=== PATIENT | male | born 1955 | race African-American/Black ===

== ENCOUNTER 2016-03-13 13:52 | Inpatient (IN) | payer OTHER ==
[~2016-03-13] VITALS: Ht 167.6 cm; Wt 68.3 kg
[2016-03-13 21:00] VITALS: BP 122/72; PULSE 66; RESP 17; TEMP 96; O2SAT 92
[2016-03-13] MEDS ORDERED: ACETAMINOPHEN 325 MG TAB PO PRN ×2 (21:30→21:45)
[2016-03-13] MEDS ORDERED: ONDANSETRON HCL 4 MG/2 ML VIAL IVP PRN ×2 (21:30→21:45)
[2016-03-13] MEDS ORDERED: MAGNESIUM HYDROXIDE SUSP 30 ML CUP PO PRN (21:30)
[2016-03-13] MEDS ORDERED: SODIUM CHLORIDE 0.9% FLUSH 5 ML FLUSH FLUSH PRN ×2 (21:30→21:45)
[2016-03-13] MEDS ORDERED: NALOXONE HCL 0.4 MG/ML AMP IV PRN ×2 (21:30→21:45)
[2016-03-13] MEDS ORDERED: BISACODYL 10 MG SUPP PR PRN (21:45)
[2016-03-13] MEDS ORDERED: ENALAPRILAT 1.25 MG/ML VIAL IV PRN (21:45)
[2016-03-13] MEDS ORDERED: cloNIDine HCL 0.2 MG TAB PO PRN (21:45)
[2016-03-13] MEDS ORDERED: DEXTROSE 50% IN WATER 50 ML VIAL(D50) IV PUSH PRN (22:00)
[2016-03-13] MEDS ORDERED: GLUCAGON 1 MG/ML VIAL OTHER PRN (22:00)
[2016-03-13] MEDS ORDERED: PRAZ1CAP PO (22:19)
[2016-03-13] MEDS ORDERED: PRAV20TA2 PO (22:19)
[2016-03-13] MEDS ORDERED: HEPAR10KP SQ (22:19)
[2016-03-13] MEDS ORDERED: NUTR-215 J-TUBE (22:19)
[2016-03-13] MEDS ORDERED: GLUCLIQ15 PO (22:19)
[2016-03-13] MEDS ORDERED: OXYC1TAB13 PO (22:19)
[2016-03-13] MEDS ORDERED: NOVORP2 SQ (22:19)
[2016-03-13] MEDS ORDERED: PROTPAK PO (22:19)
[2016-03-13] MEDS ORDERED: LOMO5S PO (22:19)
[2016-03-13] MEDS ORDERED: NYSTPOW TOPICAL (22:19)
[2016-03-13] MEDS ORDERED: NYSTATIN 100,000 UNIT/GM CREAM 15 GM TOPICAL SCH (22:30)
--- NOTE | 2016-03-13 22:46 | RADRPT ---
EXAM DATE/TIME: 03/13/2016 22:02 [facility] COMPARISON: CHEST SINGLE AP, February 23, 2016, 4:06. INDICATIONS : Cough, chest congestion. MEDICAL HISTORY : Cardiovascular disease. SURGICAL HISTORY : CABG. Pacemaker. ENCOUNTER: Initial ACUITY: 1 day PAIN SCORE: 0/10 LOCATION: Bilateral chest FINDINGS: Again evidence of prior median sternotomy cardiac surgery CABG is appreciated with a bipolar pacemake r overlying the left hemithorax . There is hypoaeration with findings suggesting borderline left vent ricular cardiomegaly and the vascularity is indistinct with pulmonary vascular congestion and right p leural effusion. CONCLUSION: Pulmonary vascular congestion, CHF with right pleural effusion Burt Sears MD on March 13, 2016 at 22:44 Board Certified Radiologist. This report was verified electronically.
[2016-03-14] VITALS (14 sets, daily range): BP systolic 101–164; BP diastolic 60–93; PULSE 65–77; RESP 12–20; TEMP 96.3–98.4; O2SAT 91–95
[2016-03-14 02:34] LABS: BICARBONATE 27.7 MEQ/L (21.0-32.0); MAGNESIUM 2.3 MG/DL (1.5-2.5); POTASSIUM 5.5 MEQ/L (3.5-5.1)
[2016-03-14 02:41] LABS: AUTOMATED NEUTROPHIL # 10.7 TH/MM3 (1.8-7.7); BASOPHIL # 0.1 TH/MM3 (0-0.2); BASOPHIL % 0.6 % (0.0-2.0); EOSINOPHIL # 0.3 TH/MM3 (0-0.4); EOSINOPHIL % 2.6 % (0.0-4.0); LYMPH % 6.8 % (9.0-44.0); LYMPHOCYTE # 0.9 TH/MM3 (1.0-4.8); MEAN CELL VOLUME 85.2 FL (80.0-100.0); MEAN CORPUSCULAR HEMOGLOBIN 27.9 PG (27.0-34.0); MEAN CORPUSCULAR HGB CONC 32.7 % (32.0-36.0); MONO % 6.2 % (0.0-8.0); NEUT % 83.8 % (16.0-70.0); PLATELET COUNT 447 TH/MM3 (150-450); RED BLOOD COUNT 2.25 MIL/MM3 (4.50-5.90); RED CELL DISTRIBUTION WIDTH 17.2 % (11.6-17.2); WHITE BLOOD COUNT 12.8 TH/MM3 (4.0-11.0)
[2016-03-14 02:47] LABS: HEMO FLAGS AUTO DIFF
[2016-03-14 02:52] LABS: HEMATOCRIT 19.1 % (39.0-51.0)
[2016-03-14 03:26] LABS: KERATOCYTES OCC (NORMAL); SPHEROCYTES OCC (NORMAL)
[2016-03-14 03:27] LABS: PLATELET MORPHOLOGY NORMAL (NORMAL); SCAN/DIFF AUTO DIFF CONFIRMED
[2016-03-14 03:28] LABS: PLATELET ESTIMATE SMEAR NORMAL (NORMAL)
[2016-03-14] MEDS ORDERED: FUROSEMIDE 20 MG/2 ML VIAL IV PUSH SCH (04:15)
[2016-03-14] MEDS: INSULIN ASPART SUPPLEMENTAL SCALE SQ SCH ×4 (06:13→20:32)
[2016-03-14] MEDS: PRAZOSIN HCL 1 MG CAP PO SCH ×2 (08:27→20:31)
[2016-03-14] MEDS: PANTOPRAZOLE SOD 40 MG DELAYED RELEASE TAB PO SCH ×2 (08:32→20:31)
[2016-03-14] MEDS: SODIUM CHLORIDE 0.9% FLUSH 5 ML FLUSH FLUSH SCH ×2 (08:32→20:32)
[2016-03-14] MEDS: NUTRITIONAL SUPPLEMENTS PO SCH ×3 (08:33→15:46)
[2016-03-14] MEDS ORDERED: SODIUM CHLORIDE 0.9% FLUSH 5 ML FLUSH FLUSH SCH (09:00)
--- NOTE | 2016-03-14 15:41 | EKG ---
Date Performed: 03/13/2016 Time Performed: 22:14:30 PTAGE: 60 years EKG: Sinus rhythm NONSPECIFIC T-WAVE ABNORMALITY ABNORMAL ECG PREVIOUS TRACING : 12/26/2015 05.32 Compared to the previous tracing, ST elevations previously, no longer noted DOCTOR: Juan Belle Interpretating Date/Time 03/14/2016 15:40:15
--- NOTE | 2016-03-14 16:47 | HHI.HP ---
HPI Service CP Hospitalists Primary Care Physician No Primary Care Physician Admission Diagnosis Chief Complaint: tranfer from [facility] Travel History International Travel<30 Days: No Contact w/Intl Traveler <30 Da: No Traveled to Known Affected Are: No History of Present Illness Patient is a pleasant 60-year-old male with a complicated past medical history. Patient was hospitalized at [place] this past December and underwent four- vessel CABG 12/20/[address] Ila Borrero. Patient also has a past medical history of duodenal ulcer, diverticulosis, chronic kidney disease, diabetes, peripheral vascular disease, CHF, hyperlipidemia, hypertension. Most recently patient was hospitalized at [facility] 01/25/16 for sepsis secondary to multilobar pneumonia and left lower extremity cellulitis. Patient developed GI bleed on 02/05/16 with acute anemia down to hemoglobin of 5.5 on 02/05/16. Due to rebleeding on patient was transferred from [facility] to [place] for further control of his bleeding. After multiple attempts to control patient's bleeding at [place] patient was ultimately transferred to [facility] for further management on 02/24/16. Patient underwent small bowel enteroscopy 02/24/16 and an active spurting vessel was seen in the second part of the duodenum which was treated with epinephrine and 2 clips. 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 Patient developed re-bleed on 03/01/16. Patient was taken to the OR by trauma team. Patient underwent exploratory laparotomy, Edel pyloroplasty with selective vagotomy, and J-tube placement. Patient was successfully extubated 03/02/16. Patient's postoperative recovery was complicated by urinary retention and Romero catheter was required. Patient transferred back to [place] for further medical treatment. Apart from generalized weakness, patient with no current medical complaints. Specifically no nausea, vomiting, or diarrhea. No chest pain no palpitations no shortness of breath no diaphoresis. Review of Systems Constitutional: DENIES: Diaphoretic episodes, Fatigue, Fever, Weight gain, Weight loss, Chills, Dizziness, Change in appetite, Night Sweats Endocrine: DENIES: Heat/cold intolerance, Polydipsia, Polyuria, Polyphagia Eyes: DENIES: Blurred vision, Diplopia, Eye inflammation, Eye pain, Vision loss , Photosensitivity, Double Vision Ears, nose, mouth, throat: DENIES: Tinnitus, Hearing loss, Vertigo, Nasal discharge, Oral lesions, Throat pain, Hoarseness, Ear Pain, Running Nose, Epistaxis, Sinus Pain, Toothache, Odynophagia Respiratory: DENIES: Apneas, Cough, Snoring, Wheezing, Hemoptysis, Sputum production, Shortness of breath Cardiovascular: DENIES: Chest pain, Palpitations, Syncope, Dyspnea on Exertion , PND, Lower Extremity Edema, Orthopnea, Claudication Gastrointestinal: COMPLAINS OF: See HPI, DENIES: Abdominal pain, Black stools , Bloody stools, BRB per rectum, Constipation, Diarrhea, GERD, Nausea, Reflux, Vomiting, Difficulty Swallowing, Anorexia Genitourinary: DENIES: Urinary frequency, Urinary incontinence, Urgency, Hematuria, Dysuria, Nocturia Musculoskeletal: DENIES: Joint pain, Muscle aches, Stiffness, Joint Swelling, Back pain, Neck pain Integumentary: DENIES: Abnormal pigmentation, Nail changes, Pruritus, Rash Hematologic/lymphatic: DENIES: Bruising, Lymphadenopathy Immunologic/allergic: DENIES: Eczema, Urticaria Neurologic: DENIES: Abnormal gait, Headache, Localized weakness, Paresthesias, Seizures, Speech Problems, Tremor, Poor Balance Psychiatric: DENIES: Anxiety, Confusion, Mood changes, Depression, Hallucinations, Agitation, Suicidal Ideation, Homicidal Ideation, Delusions, History of Bipolar, History of Schizophrenia Past Family Social History Past Medical History 1) hypertension 2) diabetes 3) coronary artery disease, status post four-vessel CABG 12/[address] Vanessa Mcguire 4) duodenal ulcer 5) GI bleed 6) chronic kidney disease, stage III 7) peripheral vascular disease 8) CHF, ejection fraction of 20% per records 9) hyperlipidemia 10) sick sinus syndrome, status post pacemaker 11) peripheral neuropathy 12) lymphangitis, left lower extremity 13) depression Past Surgical History 1) 03/01/2016: Exploratory laparotomy, Edel pyloroplasty with highly selective vagotomy, J-tube placement 2) four-vessel CABG with vein grafting from left lower extremity 3) right heel spur removal 4) [employer] pacemaker placement 5) EGD/colonoscopy 6) cardiac catheterization Reported Medications Reported Meds & Active Scripts Active Reported Roxicodone (Oxycodone HCl) 5 Mg Tab 5 Mg PO Q4H PRN Diphenoxylate-Atropine Liq (Diphenoxylate HCl/Atropine) 2.5-0.025 Mg/5 Ml Soln 5 Ml PO QID PRN Glucerna 1.5 Tiago (Nutritional Supplements) 1 Liq Liq 50 Ml J-TUBE Prazosin (Prazosin HCl) 1 Mg Cap 1 Mg PO BID Pravastatin 20 Mg Tab 20 Mg PO HS Protonix Liq (Pantoprazole Sodium) 40 Mg Pkt 40 Mg PO BID Nystatin Topical (Nystatin) 1 Powd 1 Appl TOPICAL DIRECTED Novolin R Inj (Insulin Human Regular) 1,000 Unit/10 Ml Vial Unknown Dose SQ DIRECTED Sliding Scale As Directed. Heparin Inj (Heparin Sodium (Porcine)) 10,000 Units/10 Ml Inj 5,000 Units SQ Q8HR Glucerna Shake (Nutritional Supplements) 1 Liq Liq 1 Can PO TID - albiglutide 50 mg once a week Aspirin 81 mg daily - coreg 3.125 mg by mouth twice a day - Plavix 75 mg daily - Lasix 40 mg by mouth twice a day - Neurontin 600 mg PO BID - Imdur 30 mg daily - Cozaar 50 mg daily - Multivitamin 1 tablet daily - Percocet 53 25 one tablet every 6 hours as needed for pain - KDUR 10 mEq by mouth daily - Pravachol 20 mg every afternoon Allergies: Coded Allergies: No Known Allergies (Unverified , 12/17/15) Family History Mother is unknown causes - Father from [place] in his 70s Social History Patient denies current tobacco use - Patient denies alcohol use - Patient denies illicit street drugs Physical Exam Vital Signs Vital Signs Date Time Temp Pulse Resp B/P Pulse Ox O2 Delivery O2 Flow Rate FiO2 03/14/16 16:24 97.9 72 18 164/82 92 03/14/16 12:45 97.6 66 13 116/93 95 03/14/16 12:30 98.4 67 18 152/70 95 03/14/16 11:12 94 21 03/14/16 10:15 97.8 65 12 116/65 94 03/14/16 09:56 97.5 66 14 109/68 94 03/14/16 09:25 97.8 66 12 101/60 91 03/14/16 08:39 97.4 66 18 112/69 94 03/14/16 04:21 96.3 69 18 137/78 91 03/14/16 03:18 68 03/14/16 00:17 96.3 70 18 117/69 91 03/13/16 21:00 96.0 66 17 122/72 92 Physical Exam GENERAL: This is a well-nourished, well-developed patient, in no apparent distress. SKIN: No rashes, ecchymoses or lesions. Cool and dry. HEAD: Atraumatic. Normocephalic. No temporal or scalp tenderness. EYES: Pupils equal round and reactive. Extraocular motions intact. No scleral icterus. No injection or drainage. ENT: Nose without bleeding, purulent drainage or septal hematoma. Throat without erythema, tonsillar hypertrophy or exudate. Uvula midline. Airway patent. NECK: Trachea midline. No JVD or lymphadenopathy. Supple, nontender, no meningeal signs. CARDIOVASCULAR: Regular rate and rhythm without murmurs, gallops, or rubs. RESPIRATORY: Clear to auscultation. Breath sounds equal bilaterally. No wheezes , rales, or rhonchi. GASTROINTESTINAL: Abdomen soft, non-tender, nondistended. No hepato-splenomegaly , or palpable masses. No guarding. MUSCULOSKELETAL: Extremities without clubbing, cyanosis, or edema. No joint tenderness, effusion, or edema noted. No calf tenderness. Negative Homans sign bilaterally. NEUROLOGICAL: Awake and alert. Cranial nerves II through XII intact. Motor and sensory grossly within normal limits. Five out of 5 muscle strength in all muscle groups. Normal speech. Laboratory Laboratory Tests Test 03/14/16 03/14/16 01:33 05:57 White Blood Count 12.8 Red Blood Count 2.25 Hemoglobin 6.3 Hematocrit 19.1 Mean Corpuscular Volume 85.2 Mean Corpuscular Hemoglobin 27.9 Mean Corpuscular Hemoglobin 32.7 Concent Red Cell Distribution Width 17.2 Platelet Count 447 Mean Platelet Volume 8.7 Neutrophils (%) (Auto) 83.8 Lymphocytes (%) (Auto) 6.8 Monocytes (%) (Auto) 6.2 Eosinophils (%) (Auto) 2.6 Basophils (%) (Auto) 0.6 Neutrophils # (Auto) 10.7 Lymphocytes # (Auto) 0.9 Monocytes # (Auto) 0.8 Eosinophils # (Auto) 0.3 Basophils # (Auto) 0.1 CBC Comment AUTO DIFF Differential Comment AUTO DIFF CONFIRMED Platelet Estimate NORMAL Platelet Morphology Comment NORMAL Spherocytes OCC Keratocytes OCC Hematology Comments Sodium Level 140 Potassium Level 5.5 Chloride Level 106 Carbon Dioxide Level 27.7 Anion Gap 6 Blood Urea Nitrogen 30 Creatinine 0.83 Estimat Glomerular Filtration 115 Rate Random Glucose 199 Calcium Level 7.6 Magnesium Level 2.3 Blood Type O POSITIVE Antibody Screen NEGATIVE Crossmatch Leukocyte-Reduced Red Blood Cells Blood Bank Comment Result Diagram: 03/14/163 03/14/163 Imaging Last Impressions Chest X-Ray 03/13/162140 Signed Impressions: Service Date/Time: Tuesday, March 13, 2016 22:02 - CONCLUSION: Pulmonary vascular congestion, CHF with right pleural effusion Burt Sears MD Septic Shock Reassessment Heart: Regular rate and rhythm Lungs: Clear Skin: Warm Peripheral Pulses: Bounding Right Radial Bounding Left Radial Bounding Right Popliteal Bounding Left Popliteal Bounding Right Dorsalis Pedis Bounding Left Dorsalis Pedis Bounding Right Posterior Tibial Bounding Left Posterior Tibial Assessment and Plan Problem List: (1) Anemia, blood loss Status: Acute Plan: - pt with recent GIB - as outlined in the HPI - Enteroscopy 02/25/16 active spurting vessel identified requiring epinephrine and 2 clips - pyloroplast with highly selective vagotomy at [facility] 03/01/16 - Hg 6.3 - Transfused 2 units of PRBC with Lasix between units - Observe for volume overload - Follow hemoglobin level - Protonix (2) H/O pyloroplasty Status: Acute Plan: - see above (3) Cardiomyopathy Status: Chronic Plan: - Continue twice a day by mouth Lasix - Repeat chest x-ray in a.m. - Currently patient is saturating okay on room air - Continue to observe for CHF exacerbation - Hold supplemental potassium at this time due to hyperkalemia on last lab - Repeat labs in a.m. (4) Diabetes Status: Chronic Plan: - SSI (5) CAD (coronary artery disease) Status: Chronic Plan: - CABG 12/2015 - ASA, Plavix, Coreg, Imdur, Pravachol (6) Hypertension Status: Chronic Plan: - Stable - Coreg Physician Certification 2 Midnight Certification Type: Admission for Inpatient Services Order for Inpatient Services The services are ordered in accordance with Medicare regulations or non- Medicare payer requirements, as applicable. In the case of services not specified as inpatient-only, they are appropriately provided as inpatient services in accordance with the 2-midnight benchmark. Estimated LOS (days): 3 3 days is the estimated time the patient will need to remain in the hospital, assuming treatment plan goals are met and no additional complications. Post-Hospital Plan: Not yet determined Problem Qualifiers (1) Cardiomyopathy: Qualified Code: I42.9 - Cardiomyopathy, unspecified type (2) Diabetes: Qualified Code: E11.8 - Type 2 diabetes mellitus with complication, with long- term current use of insulin (3) CAD (coronary artery disease): Qualified Code: I25.10 - Coronary artery disease involving [place] heart without angina pectoris, unspecified vessel or lesion type (4) Hypertension: Qualified Code: I10 - Essential hypertension Ren Brown DO Mar 14, 2016 16:47
[2016-03-14] MEDS ORDERED: oxyCODONE/ACETAMINOPHEN 5 MG/325 MG TAB PO PRN (17:15)
[2016-03-14] MEDS: CLOPIDOGREL 75 MG TAB PO SCH (18:00)
[2016-03-14] MEDS: ISOSORBIDE MONONITRATE 30 MG TAB PO SCH (18:00)
[2016-03-14] MEDS: FUROSEMIDE 40 MG TAB PO SCH (18:00)
[2016-03-14] MEDS: ASPIRIN EC 81 MG TABEC PO SCH (18:00)
[2016-03-14 19:55] LABS: AUTOMATED NEUTROPHIL # 10.4 TH/MM3 (1.8-7.7); BASOPHIL # 0.1 TH/MM3 (0-0.2); BASOPHIL % 0.6 % (0.0-2.0); EOSINOPHIL # 0.2 TH/MM3 (0-0.4); EOSINOPHIL % 1.9 % (0.0-4.0); HEMATOCRIT 27.6 % (39.0-51.0); HEMO FLAGS DIFF FINAL; LYMPH % 6.1 % (9.0-44.0); LYMPHOCYTE # 0.7 TH/MM3 (1.0-4.8); MEAN CELL VOLUME 86.7 FL (80.0-100.0); MEAN CORPUSCULAR HEMOGLOBIN 28.8 PG (27.0-34.0); MEAN CORPUSCULAR HGB CONC 33.2 % (32.0-36.0); MONO % 5.5 % (0.0-8.0); NEUT % 85.9 % (16.0-70.0); PLATELET COUNT 493 TH/MM3 (150-450); RED BLOOD COUNT 3.19 MIL/MM3 (4.50-5.90); RED CELL DISTRIBUTION WIDTH 16.1 % (11.6-17.2); WHITE BLOOD COUNT 12.1 TH/MM3 (4.0-11.0)
[2016-03-14 20:17] LABS: BICARBONATE 30.5 MEQ/L (21.0-32.0); POTASSIUM 5.2 MEQ/L (3.5-5.1)
[2016-03-14] MEDS: GABAPENTIN 300 MG CAP PO SCH (20:30)
[2016-03-14] MEDS: PRAVASTATIN SOD 20 MG TAB PO SCH (20:31)
[2016-03-14] MEDS: PRAVASTATIN SOD 10 MG TAB PO SCH (20:31)
[2016-03-14] MEDS: CARVEDILOL 3.125 MG TAB PO SCH (20:31)
[2016-03-15] VITALS (7 sets, daily range): BP systolic 97–145; BP diastolic 60–89; PULSE 65–84; RESP 18–20; TEMP 96–97.1; O2SAT 90–94
[2016-03-15] MEDS: ISOSORBIDE MONONITRATE 30 MG TAB PO SCH (05:18)
[2016-03-15] MEDS: INSULIN ASPART SUPPLEMENTAL SCALE SQ SCH ×4 (06:26→21:49)
--- NOTE | 2016-03-15 08:29 | RADRPT ---
EXAM DATE/TIME: 03/15/2016 07:55 [facility] COMPARISON: CHEST SINGLE AP, February 17, 2016, 18:30. CHEST PA & LAT, December 18, 2015, 14:56. INDICATIONS : Short of Breath MEDICAL HISTORY : Cardiovascular disease. SURGICAL HISTORY : CABG. Pacemaker. ENCOUNTER: Subsequent ACUITY: 3 days PAIN SCORE: 0/10 LOCATION: Bilateral chest FINDINGS: The lungs are hypoaerated. There is significant opacity in both lung bases with blunting of the costo phrenic angles. Central interstitial prominence is noted dual-chamber pacemaker is in stable position . A CONCLUSION: Small to moderate bilateral effusions with central pulmonary congestion and basilar airspace disease. Findings are characteristic of congestive heart failure. Stable pacemaker. Rich Baldwin MD on March 15, 2016 at 8:19 Board Certified Radiologist. This report was verified electronically.
[2016-03-15] MEDS: MULTIVITAMIN TAB PO SCH (08:37)
[2016-03-15] MEDS: FUROSEMIDE 40 MG TAB PO SCH ×2 (08:37→18:55)
[2016-03-15] MEDS: GABAPENTIN 300 MG CAP PO SCH ×2 (08:37→21:38)
[2016-03-15] MEDS: CARVEDILOL 3.125 MG TAB PO SCH ×2 (08:37→21:00)
[2016-03-15] MEDS: CLOPIDOGREL 75 MG TAB PO SCH (08:37)
[2016-03-15] MEDS: PANTOPRAZOLE SOD 40 MG DELAYED RELEASE TAB PO SCH ×2 (08:37→21:38)
[2016-03-15] MEDS: SODIUM CHLORIDE 0.9% FLUSH 5 ML FLUSH FLUSH SCH ×2 (08:37→21:53)
[2016-03-15] MEDS: ASPIRIN EC 81 MG TABEC PO SCH (08:37)
[2016-03-15] MEDS: PRAZOSIN HCL 1 MG CAP PO SCH ×2 (08:38→21:00)
[2016-03-15] MEDS: LOSARTAN 50 MG TAB PO SCH (08:38)
[2016-03-15] MEDS: NUTRITIONAL SUPPLEMENTS PO SCH ×3 (09:00→18:00)
--- NOTE | 2016-03-15 12:16 | HHI.PR ---
Subjective Remarks pt says he can't remember anything about being at [facility]. Objective Vitals heart reg lung cta abd midline incision with 2 areas of dehiscence. no drainage or redness. left abdomen J tube. ext no edema Vital Signs Date Time Temp Pulse Resp B/P Pulse Ox O2 Delivery O2 Flow Rate FiO2 03/15/16 08:00 97.1 80 18 145/89 90 03/15/16 04:00 96.3 68 20 122/70 93 03/14/16 23:49 97.4 65 20 121/73 92 03/14/16 21:50 94 03/14/16 20:33 97.6 77 20 158/83 94 03/14/16 16:24 97.9 72 18 164/82 92 03/14/16 12:45 97.6 66 13 116/93 95 03/14/16 12:30 98.4 67 18 152/70 95 03/14/16 03/14/16 03/15/16 15:00 23:00 07:00 Intake Total 480 ml Output Total 1000 ml 1250 ml 650 ml Balance -520 ml -1250 ml -650 ml Intake Oral 480 ml Output Urine Total 1000 ml 1250 ml 650 ml # Bowel Movements 0 0 2 Result Diagram: 03/14/16190903/14/161909 Imaging Last Impressions Chest X-Ray 03/13/162140 Signed Impressions: Service Date/Time: Sunday, March 13, 2016 22:02 - CONCLUSION: Pulmonary vascular congestion, CHF with right pleural effusion Burt Sears MD A/P Problem List: (1) H/O pyloroplasty Status: Acute Plan: -Pt with cabg in December then presented to [place] in February with cellulitis and pna developed gib and duodenal ulcer noted. Sent to [place] for persistent bleeding of unclear etiology. Total 28 units blood. then taken to [facility] where initially - Enteroscopy 02/25/16 showed active spurting vessel distal to duodenum requiring epinephrine and 2 clips. Then had recurrent bleeding and taken for Edel pyloroplasty and selective vagotomy. J tube placed. 03/01 -Pt transferred back to [place] over the weekend on tube feeding and severe anemia. Given 2 units of blood for hgb 6. Also his midline abdomen wound was dehiscing. -wound care consulted and recommeded wound vac to abdomen wound. general surgery pending. -consult GI svc to assist. cont tube feeding. will ask GI if ok to advance diet or need to wait. -PT -dvt prophylaxis (2) Anemia, blood loss Status: Acute Plan: see above - (3) Cardiomyopathy Status: Chronic Plan: cont his current medication. bb/nicky/diuretic. (4) Diabetes Status: Chronic Plan: - SSI (5) CAD (coronary artery disease) Status: Chronic Plan: - CABG 12/2015 - ASA, Plavix, Coreg, Imdur, Pravachol (6) Hypertension Status: Chronic Plan: - Stable - Coreg Problem Qualifiers (1) Cardiomyopathy: Qualified Code: I42.9 - Cardiomyopathy, unspecified type (2) Diabetes: Qualified Code: E11.8 - Type 2 diabetes mellitus with complication, with long- term current use of insulin (3) CAD (coronary artery disease): Qualified Code: I25.10 - Coronary artery disease involving [place] heart without angina pectoris, unspecified vessel or lesion type (4) Hypertension: Qualified Code: I10 - Essential hypertension Dick Black MD Mar 15, 2016 12:16
--- NOTE | 2016-03-15 14:50 | PD.CONS ---
HPI History of Present Illness This is a 60 year old male patient who was transferred from [facility] for treatment of recurrent GI bleeding by interventional radiology. The patient has a history of coronary artery disease and sick sinus syndrome and underwent a CABG 4 and pacemaker placement in December 2015 [facility]. His postop course was complicated with multi lobar pneumonia, cellulitis of the left lower extremity, and sepsis. The patient was admitted to [facility] on 01/25/16 with sepsis, leukocytosis, multi lobar pneumonia, exacerbation of renal failure, left lower extremity cellulitis. The patient then developed an acute upper GI bleed and underwent an EGD with Dr. Jacobs on (02/14/16) and this revealed a large duodenal ulcer with active bleeding status post Gold probe cauterization and 7 mL's epinephrine injection. Postoperatively he went into respiratory arrest and required intubation with mechanical ventilation. He then had a repeat upper endoscopy on (02/09/16) which revealed no active bleeding. He was extubated and transferred to the floor but developed recurrent bleeding on 02/13/16. He was evaluated with a bleeding scan on 02/14/16 and this revealed evidence of bleeding at the mid transverse colon, extending into the descending colon, versus other site uncertain. He was transfused and underwent an EGD/colonoscopy (02/14/16) and this revealed no evidence of recurrent bleeding seen at the duodenal ulcer, colonoscopy revealed lead throughout the colon, which terminal ileum intubated with no blood seen, status post extensive irrigation of the colon, all clots were removed, there was no active bleeding seen in the cecum, transverse colon, descending, or sigmoid colon. There were no polypoid masses, neoplasms seen. There was some diverticulosis noted in the sigmoid colon but no evidence of any AVMs in the mid transverse colon or active bleeding or stigmata of focal bleeding. He continued to have GI bleeding and was transferred to this facility on for further evaluation and treatment, possible embolization. He was evaluated with with CTA, which did not identify the source of his bleeding. He continued to have bleeding and despite multiple endoscopies, colonoscopies, enteroscopy, there was not specific source for his bleeding, although there was a high suspicion for it to be related to his duodenal ulcer and therefore underwent endoscopic treatment and embolization. Unfortunately he continued to bleed. He was then transferred to [facility] for possible double balloon enteroscopy/capsule endoscopy on 02/24/16. He underwent small bowel enteroscopy on (02/24/16) and this revealed an active spurting vessel in the second portion of the duodenum and this was treated with epinephrine and 2 clips. 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 He then developed rebleeding on 03/01/16 and then went to OR for an exploratory laparotomy, Edel pyloroplasty with selective vagotomy, and J tube placement. He was transferred back to our facility on 03/14/16 for further medical treatment. His H/H on admission was 6.3/19.1. He was given an additional 2 units of PRBC and this is currently stable at 9.2/27.6. He is currently resting in bed in no distress. He has not had any obvious active bleeding since his arrival back to [place]. He is not having any nausea, vomiting, abdominal pain. He is moving his stools. He is tolerating TF via J tube- Glucerna 1.5 at 40cc/hr. He is also taking clears and has been tolerating this. (Irma Bartholomew) PFSH Past Medical History Coronary artery disease Hx SSS with tachybrady arrhythmia and severe bradycardia Diabetes Neuropathy For past the Chronic renal failure Multilobar pneumonia Bilateral pleural effusions Recent sepsis secondary to pneumonia and cellulitis of left lower extremity Lymphangitis of lower extremity vein harvest site Hypertension Large duodenal ulcer Recurrent GI bleeding Past Surgical History Multiple EGD, Enteroscopy Multiple Colonoscopies Exploratory CABG Permanent pacemaker Exploratory laparotomy, Boyle pyloroplasty with selective vagotomy, and J tube placement (03/01/16) (Irma Bartholomew) Coded Allergies: No Known Allergies (Unverified , 12/17/15) Medications Allergies Coded Allergies Type Severity Reaction Last Updated Verified No Known Allergies 12/17/15 No Active Scripts Medications Dose Route/Sig Days Date Category Dose Instructions Roxicodone (Oxycodone HCl) 5 Mg Tab 5 Mg PO Q4H PRN 03/13/16 Reported Diphenoxylate-Atropine Liq (Diphenoxylate HCl/Atropine) 2.5-0.025 Mg/5 Ml Soln 5 Ml PO QID PRN 03/13/16 Reported Glucerna 1.5 Tiago (Nutritional Supplements) 1 Liq Liq 50 Ml J-TUBE 03/13/16 Reported Prazosin (Prazosin HCl) 1 Mg Cap 1 Mg PO BID 03/13/16 Reported Pravastatin 20 Mg Tab 20 Mg PO HS 03/13/16 Reported Protonix Liq (Pantoprazole Sodium) 40 Mg Pkt 40 Mg PO BID 03/13/16 Reported Nystatin Topical (Nystatin) 1 Powd 1 Appl TOPICAL DIRECTED 03/13/16 Reported Novolin R Inj (Insulin Human Regular) 1,000 Unit/10 Ml Vial Unknown Dose SQ DIRECTED 03/13/16 Reported Sliding Scale As Directed. Heparin Inj (Heparin Sodium (Porcine)) 10,000 Units/10 Ml Inj 5,000 Units SQ Q8HR 03/13/16 Reported Glucerna Shake (Nutritional Supplements) 1 Liq Liq 1 Can PO TID 03/13/16 Reported Family History Mother is unknown causes Father from [place] in his 70s Social History Denies the use of tobacco, etoh, or illicit drug use (Irma Bartholomew ) Review of Systems Constitutional: COMPLAINS OF: Fatigue Respiratory: DENIES: Cough, Shortness of breath Cardiovascular: DENIES: Chest pain Gastrointestinal: DENIES: Abdominal pain, Black stools, Bloody stools, Constipation, Diarrhea, Nausea, Vomiting, Swelling of Abdomen, Heartburn, Hematemesis Integumentary: DENIES: Abnormal pigmentation Hematologic/lymphatic: DENIES: Bruising Neurologic: DENIES: Headache Psychiatric: DENIES: Confusion (Irma Bartholomew) GI Exam Vitals I&O Vital Signs Date Time Temp Pulse Resp B/P Pulse Ox O2 Delivery O2 Flow Rate FiO2 03/15/16 12:22 93 21 03/15/16 12:00 96.4 80 18 102/60 91 03/15/16 09:30 92 03/15/16 08:00 97.1 80 18 145/89 90 03/15/16 04:00 96.3 68 20 122/70 93 03/14/16 23:49 97.4 65 20 121/73 92 03/14/16 21:50 94 03/14/16 20:33 97.6 77 20 158/83 94 03/14/16 16:24 97.9 72 18 164/82 92 I/O 03/14/16 03/14/16 03/14/16 03/15/169/17 1/9/17 07:00 15:00 23:00 07:00 15:00 23:00 Intake Total 480 ml Output Total 650 ml 1000 ml 1250 ml 650 ml Balance -650 ml -520 ml -1250 ml -650 ml Intake Oral 480 ml Output Urine Total 650 ml 1000 ml 1250 ml 650 ml # Bowel Movements 0 0 0 2 Imaging Last Impressions Chest X-Ray 03/15/16 0800 Signed Impressions: Service Date/Time: Tuesday, March 15, 2016 07:55 - CONCLUSION: Small to moderate bilateral effusions with central pulmonary congestion and basilar airspace disease. Findings are characteristic of congestive heart failure. Stable pacemaker. Rich Baldwin MD Laboratory Test 03/14/16 19:10 White Blood Count 12.1 TH/MM3 Red Blood Count 3.19 MIL/MM3 Hemoglobin 9.2 GM/DL Hematocrit 27.6 % Mean Corpuscular Volume 86.7 FL Mean Corpuscular Hemoglobin 28.8 PG Mean Corpuscular Hemoglobin 33.2 % Concent Red Cell Distribution Width 16.1 % Platelet Count 493 TH/MM3 Mean Platelet Volume 7.8 FL Neutrophils (%) (Auto) 85.9 % Lymphocytes (%) (Auto) 6.1 % Monocytes (%) (Auto) 5.5 % Eosinophils (%) (Auto) 1.9 % Basophils (%) (Auto) 0.6 % Neutrophils # (Auto) 10.4 TH/MM3 Lymphocytes # (Auto) 0.7 TH/MM3 Monocytes # (Auto) 0.7 TH/MM3 Eosinophils # (Auto) 0.2 TH/MM3 Basophils # (Auto) 0.1 TH/MM3 CBC Comment DIFF FINAL Differential Comment Sodium Level 139 MEQ/L Potassium Level 5.2 MEQ/L Chloride Level 102 MEQ/L Carbon Dioxide Level 30.5 MEQ/L Anion Gap 7 MEQ/L Blood Urea Nitrogen 24 MG/DL Creatinine 0.86 MG/DL Estimat Glomerular Filtration 111 ML/MIN Rate Random Glucose 162 MG/DL Calcium Level 7.7 MG/DL Physical Examination HEENT: Normocephalic; atraumatic; no jaundice. CHEST: Resp. even/unlabored. CTA CARDIAC: RRR. ABDOMEN: Soft, very mildly distended, midline drsg d/i, J tube in place ; no hepatosplenomegaly; bowel sounds are present . EXTREMITIES: No clubbing, cyanosis, or edema. SKIN: Normal; no rash; no jaundice. FIRE BATTALION CHIEF: Lethargic, oriented times three. Generalized weakness. (Irma Bartholomew) Assessment and Plan Plan ASSESSMENT: - Recurrent GI Bleeding secondary to large duodenal ulcer. S/P Multiple EGDs, Enteroscopies, Colonoscopies. He was having recurrent bleeding despite endoscopic treatment and therefore tx to [facility] on 02/24/16. S/P small bowel enteroscopy on (02/24/16) and this revealed an active spurting vessel in the second portion of the duodenum and this was treated with epinephrine and 2 clips. 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 He then developed rebleeding on 03/01/16 and then went to OR for an exploratory laparotomy, Boyle pyloroplasty with selective vagotomy, and J tube placement. He was tx back to this facility 03/14/16 for further treatment. HH on admission was 6.3/19.1. He was given 2 units of PRBC and this is now stable at 9.2/27.6. There is no obvious active bleeding and he is not having any n/v/pain. He is tolerating clears and TF via J tube Glucerna 1.5 at 40cc/hr. PPI. - S/P exploratory laparotomy, Boyle pyloroplasty with selective vagotomy,and J tube placement (03/01) for rebleeding at [facility]. Tx to this facility 03/14. GS consulted. Okay for clears at this time. - FEN. Clear liquids per GS. Glucerna 1.5 at 40cc/hr. - Anemia secondary to blood loss, S/P 2 units PRBC yesterday. HH stable today 9.2/27.6. - Severe deconditioning. PT - CMP, DM, CAD, HTN per primary PLAN: - Diet per GS- Regular diet - Cont. Glucerna 1.5 at 30cc/hr until tolerating and eating regular diet - PPI - Monitor HH - Transfuse as necessary - Monitor labs - Physical therapy - Notify GI of active bleeding - Supportive care - Further recommendations to follow based on results of above - Pt seen and examined by Dr. Krishnamurthy and myself and this note is written on his behalf (Irma Bartholomew) Physician Comments Patient seen and examined Agree with above Continue with current supportive care Monitor labs and transfuse as needed (Tani Krishnamurthy MD) Irma Bartholomew Mar 15, 2016 14:50 Tani Krishnamurthy MD Mar 15, 2016 22:57
--- NOTE | 2016-03-15 15:34 | PD.CONS ---
General Surgery Consult Surgical consult: Reason for consultation is evaluate for postoperative care, status post pyloroplasty and highly selective vagotomy. Brief history (obtained from the chart as the patient has no memory of his last month's hospitalizations): Patient is a 60-year-old gentleman who was initially at [facility] with a GI bleed. He was subsequently transferred to [place] where he had evidence of continued intermittent bleeding without an identifiable source. He was transferred to [facility] in mid February for further evaluation and treatment. He had an identifiable second portion of the duodenum bleed which was treated by GI medicine; subsequently he re-bled and underwent exploratory laparotomy with pyloroplasty and highly selective vagotomy. Since then he is evidenced no further bleeding and was transferred back to [place] for continued postoperative care. The patient currently has no complaints of pain. He is tolerating minimal liquid intake and has been on tube feedings without problem. He is having multiple bowel movements daily other than feeling weak as no complaints. Past medical history, family history, social history, and review of systems documented in the remainder of this chart. EXAM: Vital Signs Date Time Temp Pulse Resp B/P Pulse Ox O2 Delivery O2 Flow Rate FiO2 03/15/16 12:22 93 21 03/15/16 12:00 96.4 80 18 102/60 91 03/15/16 09:30 92 03/15/16 08:00 97.1 80 18 145/89 90 03/15/16 04:00 96.3 68 20 122/70 93 03/14/16 23:49 97.4 65 20 121/73 92 03/14/16 21:50 94 03/14/16 20:33 97.6 77 20 158/83 94 03/14/16 16:24 97.9 72 18 164/82 92 GENERAL: Patient appears to be minimally ill but debilitated. LUNGS: Slightly decreased breath sounds but no rales, rhonchi, or wheezes. HEART: Regular rate and rhythm ABDOMEN: The patient's abdomen is completely benign with no tenderness, guarding , or rebound. He has a healing midline incision with 2 areas of skin dehiscence with the fascia grossly being intact. There is very little depth to these 2 areas and there is at least a small granulation tissue at the base of both. The remainder of his incision has katherine in place. Laboratory Tests Test 1/10/2103/14/16 03/14/16 01:33 05:57 19:10 White Blood Count 12.8 TH/MM3 12.1 TH/MM3 Red Blood Count 2.25 MIL/MM3 3.19 MIL/MM3 Hemoglobin 6.3 GM/DL 9.2 GM/DL Hematocrit 19.1 % 27.6 % Mean Corpuscular Volume 85.2 FL 86.7 FL Mean Corpuscular Hemoglobin 27.9 PG 28.8 PG Mean Corpuscular Hemoglobin 32.7 % 33.2 % Concent Red Cell Distribution Width 17.2 % 16.1 % Platelet Count 447 TH/MM3 493 TH/MM3 Mean Platelet Volume 8.7 FL 7.8 FL Neutrophils (%) (Auto) 83.8 % 85.9 % Lymphocytes (%) (Auto) 6.8 % 6.1 % Monocytes (%) (Auto) 6.2 % 5.5 % Eosinophils (%) (Auto) 2.6 % 1.9 % Basophils (%) (Auto) 0.6 % 0.6 % Neutrophils # (Auto) 10.7 TH/MM3 10.4 TH/MM3 Lymphocytes # (Auto) 0.9 TH/MM3 0.7 TH/MM3 Monocytes # (Auto) 0.8 TH/MM3 0.7 TH/MM3 Eosinophils # (Auto) 0.3 TH/MM3 0.2 TH/MM3 Basophils # (Auto) 0.1 TH/MM3 0.1 TH/MM3 CBC Comment AUTO DIFF DIFF FINAL Differential Comment AUTO DIFF CONFIRMED Platelet Estimate NORMAL Platelet Morphology Comment NORMAL Spherocytes OCC Keratocytes OCC Hematology Comments Sodium Level 140 MEQ/L 139 MEQ/L Potassium Level 5.5 MEQ/L 5.2 MEQ/L Chloride Level 106 MEQ/L 102 MEQ/L Carbon Dioxide Level 27.7 MEQ/L 30.5 MEQ/L Anion Gap 6 MEQ/L 7 MEQ/L Blood Urea Nitrogen 30 MG/DL 24 MG/DL Creatinine 0.83 MG/DL 0.86 MG/DL Estimat Glomerular Filtration 115 ML/MIN 111 ML/MIN Rate Random Glucose 199 MG/DL 162 MG/DL Calcium Level 7.6 MG/DL 7.7 MG/DL Magnesium Level 2.3 MG/DL Blood Type O POSITIVE Antibody Screen NEGATIVE Crossmatch Leukocyte-Reduced Red Blood Cells Blood Bank Comment Last 24 hours Impressions Chest X-Ray 03/15/16 0800 Signed Impressions: Service Date/Time: Tuesday, March 15, 2016 07:55 - CONCLUSION: Small to moderate bilateral effusions with central pulmonary congestion and basilar airspace disease. Findings are characteristic of congestive heart failure. Stable pacemaker. Rich Baldwin MD Impression: 60-year-old gentleman who has undergone expiratory laparotomy, pyloroplasty, and highly selective vagotomy. He is recovering well from his surgery but is in need of rehabilitation. He has no acute problems at this point after having had a blood transfusion for 2 units the other day which increase hemoglobin from 6.6 to 9.2. He has no evidence of ongoing bleeding. He is tolerating tube feedings. Plan: I would recommend that we decrease his tube feeds to 30 mL's per hour. I have placed him on a regular diet as physical therapy to take a look at it. I believe he should be able to go to rehabilitation of this week. Archie Bridges MD Mar 15, 2016 15:34
[2016-03-15] MEDS: PRAVASTATIN SOD 10 MG TAB PO SCH (21:38)
[2016-03-15] MEDS: PRAVASTATIN SOD 20 MG TAB PO SCH (21:38)
[2016-03-16] VITALS (7 sets, daily range): BP systolic 87–118; BP diastolic 51–68; PULSE 59–67; RESP 17–18; TEMP 96.1–97.9; O2SAT 90–91
[2016-03-16] MEDS: ISOSORBIDE MONONITRATE 30 MG TAB PO SCH (06:33)
[2016-03-16] MEDS: INSULIN ASPART SUPPLEMENTAL SCALE SQ SCH ×4 (06:37→21:00)
[2016-03-16] MEDS: PRAZOSIN HCL 1 MG CAP PO SCH ×2 (09:00→21:00)
[2016-03-16] MEDS: NUTRITIONAL SUPPLEMENTS PO SCH ×3 (09:00→16:32)
[2016-03-16] MEDS: LOSARTAN 50 MG TAB PO SCH (09:00)
[2016-03-16] MEDS: MULTIVITAMIN TAB PO SCH (09:29)
[2016-03-16] MEDS: GABAPENTIN 300 MG CAP PO SCH ×2 (09:29→21:24)
[2016-03-16] MEDS: FUROSEMIDE 40 MG TAB PO SCH ×2 (09:29→17:48)
[2016-03-16] MEDS: ASPIRIN EC 81 MG TABEC PO SCH (09:29)
[2016-03-16] MEDS: PANTOPRAZOLE SOD 40 MG DELAYED RELEASE TAB PO SCH ×2 (09:29→21:24)
[2016-03-16] MEDS: CARVEDILOL 3.125 MG TAB PO SCH ×2 (09:29→21:00)
[2016-03-16] MEDS: CLOPIDOGREL 75 MG TAB PO SCH (09:30)
[2016-03-16] MEDS: SODIUM CHLORIDE 0.9% FLUSH 5 ML FLUSH FLUSH SCH ×2 (09:31→21:25)
[2016-03-16 10:16] LABS: POTASSIUM 4.9 MEQ/L (3.5-5.1)
[2016-03-16 10:32] LABS: CALCIUM-PROTEIN CORRECTED 8.5 MG/DL (8.5-10.1)
--- NOTE | 2016-03-16 11:14 | HHI.PR ---
Subjective Subjective Notes Patient has complains only of scrotal pain. He denies any nausea or vomiting. He just had a bowel movement, which he did not realize Objective Vitals/I&O Vital Signs Date Time Temp Pulse Resp B/P Pulse Ox O2 Delivery O2 Flow Rate FiO2 03/16/16 08:00 96.1 67 18 87/52 91 03/15/16 12:22 21 Labs Laboratory Tests Test 03/16/16 08:50 Sodium Level 137 Potassium Level 4.9 Chloride Level 100 Carbon Dioxide Level 31.0 Anion Gap 6 Blood Urea Nitrogen 19 Creatinine 0.80 Estimat Glomerular Filtration 120 Rate Random Glucose 147 Calcium Level 7.4 Protein Corrected Calcium 8.5 Total Protein 5.2 Narrative Exam His abdomen is completely benign. The wound is clean and dry with the dressing in place. There is minimal granulation tissue at this point unchanged from yesterday. A/P Assessment and Plan Impression/plan: Status post exploratory laparotomy, pyloroplasty and highly selective vagotomy possibly 3 weeks ago at [facility]. From a surgical standpoint is stable with minimal wound problems from the standpoint of 2 small open areas in the midline wound which are slowly granulating. His nutrition is acceptable this point with tube feedings. He needs to have oral intake encouraged. He also needs to be ambulated and I have consult physical therapy for his gait and strength training. Archie Bridges MD Mar 16, 2016 11:14
--- NOTE | 2016-03-16 13:46 | HHI.PR ---
Subjective Remarks no pain. eager to eat. eager for rehab. Objective Vitals oriented x 3 no labored breathing heart reg lung left base diminished good air entry on righ abd j tube. bs. nd/nt ext no edema solitario. Vital Signs Date Time Temp Pulse Resp B/P Pulse Ox O2 Delivery O2 Flow Rate FiO2 03/16/16 12:00 97.8 66 18 118/68 90 03/16/16 08:00 96.1 67 18 87/52 91 03/16/16 04:00 96.6 66 18 93/51 91 03/16/16 00:00 97.2 63 18 93/64 90 03/15/16 20:00 96.0 65 18 97/61 94 03/15/16 20:00 70 03/15/16 16:00 97.1 84 18 121/75 92 03/15/16 03/15/16 03/16/16 15:00 23:00 07:00 Intake Total 240 ml 1680 ml Output Total 1050 ml 500 ml Balance -810 ml 1180 ml Intake Oral 240 ml 850 ml Tube Feeding 630 ml Tube Irrigant 200 ml Output Urine Total 1050 ml 500 ml # Bowel Movements 2 1 Result Diagram: 03/14/16 1910 03/16/16 0850 Imaging Last Impressions Chest X-Ray 03/13/162140 Signed Impressions: Service Date/Time: Sunday, March 13, 2016 22:02 - CONCLUSION: Pulmonary vascular congestion, CHF with right pleural effusion Burt Sears MD A/P Problem List: (1) H/O pyloroplasty Status: Acute Plan: -Pt with cabg in December then presented to [place] in February with cellulitis and pna developed gib and duodenal ulcer noted. Sent to [place] for persistent bleeding of unclear etiology. Total 28 units blood. then taken to [facility] where initially - Enteroscopy 02/25/16 showed active spurting vessel distal to duodenum requiring epinephrine and 2 clips. Then had recurrent bleeding and taken for Edel pyloroplasty and selective vagotomy. J tube placed. 03/01 -Pt transferred back to [place] over the weekend on tube feeding and severe anemia. Given 2 units of blood for hgb 6. Also his midline abdomen wound was dehiscing. discussed with Dr Bridges. will wean off tube feeding. local wound care and no need for wound vac over abdomen wound. advance diet. PT and get oob. for chf cont bb/diuretic. hold arb for low bp. plan for d/c to snf in next 2 days. (2) Anemia, blood loss Status: Acute Plan: see above - (3) Cardiomyopathy Status: Chronic Plan: cont his current medication. bb//diuretic. hold arb (4) Diabetes Status: Chronic Plan: - SSI (5) CAD (coronary artery disease) Status: Chronic Plan: - CABG 12/2015 - ASA, Plavix, Coreg, Imdur, Pravachol (6) Hypertension Status: Chronic Plan: - Stable - Coreg Problem Qualifiers (1) Cardiomyopathy: Qualified Code: I42.9 - Cardiomyopathy, unspecified type (2) Diabetes: Qualified Code: E11.8 - Type 2 diabetes mellitus with complication, with long- term current use of insulin (3) CAD (coronary artery disease): Qualified Code: I25.10 - Coronary artery disease involving [place] heart without angina pectoris, unspecified vessel or lesion type (4) Hypertension: Qualified Code: I10 - Essential hypertension Dick Black MD Mar 16, 2016 13:46
[2016-03-16] MEDS ORDERED: ALBUMIN HUMAN 25% 25 GM/100 ML BAGP IV ONE (15:15)
[2016-03-16] MEDS ORDERED: FUROSEMIDE 20 MG/2 ML VIAL IV PUSH ONE (16:15)
--- NOTE | 2016-03-16 17:33 | HHI.GIFU ---
Subjective Remarks Resting in bed. Still working on lunch from this afternoon. Trying to eat more. States PT was in today and he did get out of bed, but was very weak. No active bleeding. No abdominal pain. (Irma Bartholomew) Objective Vitals I&O Vital Signs Date Time Temp Pulse Resp B/P Pulse Ox O2 Delivery O2 Flow Rate FiO2 03/16/16 16:00 97.3 60 18 94/64 91 03/16/16 12:00 97.8 66 18 118/68 90 03/16/16 08:00 96.1 67 18 87/52 91 03/16/16 04:00 96.6 66 18 93/51 91 03/16/16 00:00 97.2 63 18 93/64 90 03/15/16 20:00 96.0 65 18 97/61 94 03/15/16 20:00 70 I/O 03/15/16 03/15/16 03/15/16 03/16/16 03/16/16 03/16/16 07:00 15:00 23:00 07:00 15:00 23:00 Intake Total 240 ml 1680 ml 740 ml Output Total 650 ml 1050 ml 500 ml 400 ml Balance -650 ml -810 ml 1180 ml 340 ml Intake Oral 240 ml 850 ml 740 ml Tube Feeding 630 ml Tube Irrigant 200 ml Output Urine Total 650 ml 1050 ml 500 ml 400 ml # Bowel Movements 2 2 1 3 Laboratory Laboratory Tests Test 03/16/16 08:50 Sodium Level 137 Potassium Level 4.9 Chloride Level 100 Carbon Dioxide Level 31.0 Anion Gap 6 Blood Urea Nitrogen 19 Creatinine 0.80 Estimat Glomerular Filtration 120 Rate Random Glucose 147 Calcium Level 7.4 Protein Corrected Calcium 8.5 Total Protein 5.2 Imaging Last Impressions Chest X-Ray 03/15/16 0800 Signed Impressions: Service Date/Time: Tuesday, March 15, 2016 07:55 - CONCLUSION: Small to moderate bilateral effusions with central pulmonary congestion and basilar airspace disease. Findings are characteristic of congestive heart failure. Stable pacemaker. Rich Baldwin MD Physical Exam HEENT: Normocephalic; atraumatic; no jaundice. CHEST: CTA CARDIAC: RRR ABDOMEN: Soft, mildly distended, nontender; no hepatosplenomegaly; bowel sounds are present in all four quadrants. Midline drsg d/i. J tube with TF EXTREMITIES: Generalized edema. SKIN: Normal; no rash; no jaundice. FLOOR CLERK: No focal deficits; lethargic and oriented times three. Generalized weakness (Irma Bartholomew) Assessment and Plan Plan ASSESSMENT: - Recurrent GI Bleeding secondary to large duodenal ulcer. S/P Multiple EGDs, Enteroscopies, Colonoscopies. He was having recurrent bleeding despite endoscopic treatment and therefore tx to [facility] on 02/24/16. S/P small bowel enteroscopy on (02/24/16) and this revealed an active spurting vessel in the second portion of the duodenum and this was treated with epinephrine and 2 clips. 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 He then developed rebleeding on 03/01/16 and then went to OR for an exploratory laparotomy, [place] pyloroplasty with selective vagotomy, and J tube placement. He was tx back to this facility 03/14/16 for further treatment. HH on admission was 6.3/19.1. He was given 2 units of PRBC and was 9.2/27.6 post transfusion. There is no obvious active bleeding and he is not having any n/v/pain. He is tolerating regular diet, but with poor po intake. TF via J tube Glucerna 1.5 at 40cc/hr. PPI. - S/P exploratory laparotomy, [place] pyloroplasty with selective vagotomy,and J tube placement (03/01) for rebleeding at [facility]. Tx to this facility 03/14. GS consulted. JOVANI per GS, wean TF once tolerating diet.. - FEN. Clear liquids per GS. Glucerna 1.5 at 40cc/hr. - Anemia secondary to blood loss, S/P 2 units PRBC yesterday. Last HH 9.2/27.6. - Severe deconditioning. PT - CMP, DM, CAD, HTN per primary PLAN: - Regular diet - Cont. Glucerna 1.5 at 30cc/hr until tolerating and eating regular diet - PPI - Monitor HH - Transfuse as necessary - CBC in am - Physical therapy - Notify GI of active bleeding - Supportive care - Further recommendations to follow based on results of above - Pt seen and examined by Dr. Krishnamurthy and myself and this note is written on his behalf (Irma Bartholomew) Physician Comments Patient seen and examined Agree with above Continue with current supportive care Monitor labs (Tani Krishnamurthy MD) Irma Bartholomew Mar 16, 2016 17:33 Tani Krishnamurthy MD Mar 16, 2016 21:58
[2016-03-16] MEDS: PRAVASTATIN SOD 10 MG TAB PO SCH (21:24)
[2016-03-16] MEDS: PRAVASTATIN SOD 20 MG TAB PO SCH (21:24)
[2016-03-17] VITALS (9 sets, daily range): BP systolic 106–128; BP diastolic 62–72; PULSE 60–66; RESP 16–18; TEMP 97–97.8; O2SAT 97–100
[2016-03-17] MEDS: ISOSORBIDE MONONITRATE 30 MG TAB PO SCH (07:00)
[2016-03-17] MEDS: INSULIN ASPART SUPPLEMENTAL SCALE SQ SCH ×4 (07:00→21:31)
[2016-03-17 07:06] LABS: BICARBONATE 29.4 MEQ/L (21.0-32.0); POTASSIUM 5.4 MEQ/L (3.5-5.1)
[2016-03-17 07:08] LABS: INDIRECT BILIRUBIN 0.2 MG/DL (0.0-0.8); TOTAL BILIRUBIN ADULT 0.3 MG/DL (0.2-1.0)
[2016-03-17 08:06] LABS: HEMO FLAGS AUTO DIFF; MEAN CELL VOLUME 86.4 FL (80.0-100.0); MEAN CORPUSCULAR HEMOGLOBIN 28.6 PG (27.0-34.0); MEAN CORPUSCULAR HGB CONC 33.1 % (32.0-36.0); PLATELET COUNT 408 TH/MM3 (150-450); RED BLOOD COUNT 3.13 MIL/MM3 (4.50-5.90); RED CELL DISTRIBUTION WIDTH 16.8 % (11.6-17.2); WHITE BLOOD COUNT 14.6 TH/MM3 (4.0-11.0)
[2016-03-17] MEDS: PANTOPRAZOLE SOD 40 MG DELAYED RELEASE TAB PO SCH ×2 (09:00→21:31)
[2016-03-17] MEDS: SODIUM CHLORIDE 0.9% FLUSH 5 ML FLUSH FLUSH SCH ×2 (09:00→21:32)
[2016-03-17] MEDS: NUTRITIONAL SUPPLEMENTS PO SCH ×3 (09:00→18:00)
[2016-03-17] MEDS: CARVEDILOL 3.125 MG TAB PO SCH ×2 (09:51→21:31)
[2016-03-17] MEDS: ASPIRIN EC 81 MG TABEC PO SCH (09:51)
[2016-03-17] MEDS: PRAZOSIN HCL 1 MG CAP PO SCH ×2 (09:51→21:31)
[2016-03-17] MEDS: CLOPIDOGREL 75 MG TAB PO SCH (09:51)
[2016-03-17] MEDS: GABAPENTIN 300 MG CAP PO SCH ×2 (09:52→21:31)
[2016-03-17] MEDS: MULTIVITAMIN TAB PO SCH (09:52)
[2016-03-17] MEDS: FUROSEMIDE 40 MG TAB PO SCH ×2 (09:52→16:35)
[2016-03-17 10:21] LABS: EOSINOPHILS 1 % (0-4); NEUTROPHIL # MANUAL DIFF 13.6 TH/MM3 (1.8-7.7); OVALOCYTES 1+ (NORMAL); PLATELET ESTIMATE SMEAR NORMAL (NORMAL); PLATELET MORPHOLOGY NORMAL (NORMAL); POLYS (SEG NEUTROPHILS) 93 % (16-70); SCAN/DIFF FINAL DIFF MANUAL; WBC DIFF SAMPLE 100
--- NOTE | 2016-03-17 11:52 | HHI.PR ---
Subjective Remarks pt doing ok. had some sob earlier. Objective Vitals nad heart reg lung good air entry ronald abd j tube midline incision..packed areas of dehiscence ext no pitting mild scrotal/penile edema..better. solitario Vital Signs Date Time Temp Pulse Resp B/P Pulse Ox O2 Delivery O2 Flow Rate FiO2 03/17/16 11:40 97 Nasal Cannula 2.00 03/17/16 08:00 97.0 65 17 118/65 98 03/17/16 04:00 97.4 60 16 106/64 97 03/17/16 00:00 97.6 60 16 107/62 97 03/16/16 20:00 97.9 59 17 94/55 90 03/16/16 16:00 97.3 60 18 94/64 91 03/16/16 12:00 97.8 66 18 118/68 90 03/16/16 03/16/16 03/17/16 15:00 23:00 07:00 Intake Total 740 ml 120 ml 823 ml Output Total 400 ml 900 ml 900 ml Balance 340 ml -780 ml -77 ml Intake Oral 740 ml 120 ml 120 ml Tube Feeding 503 ml Other 200 ml Output Urine Total 400 ml 900 ml 900 ml # Bowel Movements 3 0 2 Result Diagram: 03/17/1662503/17/16625 Imaging Last Impressions Chest X-Ray 03/13/162140 Signed Impressions: Service Date/Time: Sunday, March 13, 2016 22:02 - CONCLUSION: Pulmonary vascular congestion, CHF with right pleural effusion Burt Sears MD A/P Problem List: (1) H/O pyloroplasty Status: Acute Plan: -Pt with cabg in December then presented to [place] in February with cellulitis and pna developed gib and duodenal ulcer noted. Sent to [place] for persistent bleeding of unclear etiology. Total 28 units blood. then taken to [facility] where initially - Enteroscopy 02/25/16 showed active spurting vessel distal to duodenum requiring epinephrine and 2 clips. Then had recurrent bleeding and taken for [place] pyloroplasty and selective vagotomy. J tube placed. 03/01 -Pt transferred back to [place] over the weekend on tube feeding and severe anemia. Given 2 units of blood for hgb 6. Also his midline abdomen wound was dehiscing. discussed with Dr Bridges. will wean off tube feeding. local wound care and no need for wound vac over abdomen wound. advanced diet. nutritional supplement. PT and get oob. for chf cont bb/diuretic. hold arb for low bp. albumen and iv lasix today.. recheck bmp. plan for d/c to snf in next 2 days. (2) Anemia, blood loss Status: Acute Plan: see above - (3) Cardiomyopathy Status: Chronic Plan: cont his current medication. bb//diuretic. hold arb increae diuresis again today. (4) Diabetes Status: Chronic Plan: - SSI (5) CAD (coronary artery disease) Status: Chronic Plan: - CABG 12/2015 - ASA, Plavix, Coreg, Imdur, Pravachol (6) Hypertension Status: Chronic Plan: - Stable - Coreg Problem Qualifiers (1) Cardiomyopathy: Qualified Code: I42.9 - Cardiomyopathy, unspecified type (2) Diabetes: Qualified Code: E11.8 - Type 2 diabetes mellitus with complication, with long- term current use of insulin (3) CAD (coronary artery disease): Qualified Code: I25.10 - Coronary artery disease involving [place] heart without angina pectoris, unspecified vessel or lesion type (4) Hypertension: Qualified Code: I10 - Essential hypertension Dick Black MD Mar 17, 2016 11:52
[2016-03-17] MEDS ORDERED: ALBUMIN HUMAN 25% 25 GM/100 ML BAGP IV ONE (12:00)
[2016-03-17] MEDS ORDERED: FUROSEMIDE 20 MG/2 ML VIAL IV PUSH ONE (12:00)
--- NOTE | 2016-03-17 17:21 | HHI.GIFU ---
Subjective Remarks Resting in bed. Still with generalized weakness. He is still working on his lunch from earlier today. States he is trying to eat more but just no appetite. No abdominal pain. No bleeding. (Irma Bartholomew) Objective Vitals I&O Vital Signs Date Time Temp Pulse Resp B/P Pulse Ox O2 Delivery O2 Flow Rate FiO2 03/17/16 16:00 97.2 60 17 121/69 97 03/17/16 12:00 97.8 65 17 128/72 98 03/17/16 11:40 97 Nasal Cannula 2.00 03/17/16 08:00 97.0 65 17 118/65 98 03/17/16 04:00 97.4 60 16 106/64 97 03/17/16 00:00 97.6 60 16 107/62 97 03/16/16 20:00 97.9 59 17 94/55 90 I/O 03/16/16 03/16/16 03/16/16 03/17/16 03/17/16 03/17/16 07:00 15:00 23:00 07:00 15:00 23:00 Intake Total 1680 ml 740 ml 120 ml 823 ml Output Total 500 ml 400 ml 900 ml 900 ml Balance 1180 ml 340 ml -780 ml -77 ml Intake Oral 850 ml 740 ml 120 ml 120 ml Tube Feeding 630 ml 503 ml Tube Irrigant 200 ml Other 200 ml Output Urine Total 500 ml 400 ml 900 ml 900 ml # Bowel Movements 1 3 0 2 Laboratory Laboratory Tests Test 03/17/16 06:26 White Blood Count 14.6 Red Blood Count 3.13 Hemoglobin 8.9 Hematocrit 27.0 Mean Corpuscular Volume 86.4 Mean Corpuscular Hemoglobin 28.6 Mean Corpuscular Hemoglobin 33.1 Concent Red Cell Distribution Width 16.8 Platelet Count 408 Mean Platelet Volume 7.8 Neutrophils (%) (Auto) Lymphocytes (%) (Auto) Monocytes (%) (Auto) Eosinophils (%) (Auto) Basophils (%) (Auto) Neutrophils # (Auto) Lymphocytes # (Auto) Monocytes # (Auto) Eosinophils # (Auto) Basophils # (Auto) CBC Comment AUTO DIFF Differential Total Cells 100 Counted Neutrophils % (Manual) 93 Lymphocytes % 5 Monocytes % 1 Eosinophils % 1 Neutrophils # (Manual) 13.6 Differential Comment FINAL DIFF MANUAL Platelet Estimate NORMAL Platelet Morphology Comment NORMAL Ovalocytes 1+ Hematology Comments Sodium Level 137 Potassium Level 5.4 Chloride Level 100 Carbon Dioxide Level 29.4 Anion Gap 8 Blood Urea Nitrogen 19 Creatinine 0.89 Estimat Glomerular Filtration 106 Rate Random Glucose 149 Calcium Level 7.7 Total Bilirubin 0.3 Direct Bilirubin 0.1 Indirect Bilirubin 0.2 Aspartate Amino Transf 17 (AST/SGOT) Alanine Aminotransferase 17 (ALT/SGPT) Alkaline Phosphatase 160 Total Protein 5.3 Albumin 1.7 Imaging Last Impressions Chest X-Ray 03/15/16 0800 Signed Impressions: Service Date/Time: Tuesday, March 15, 2016 07:55 - CONCLUSION: Small to moderate bilateral effusions with central pulmonary congestion and basilar airspace disease. Findings are characteristic of congestive heart failure. Stable pacemaker. Rich Baldwin MD Physical Exam HEENT: Normocephalic; atraumatic; no jaundice. CHEST: CTA CARDIAC: RRR ABDOMEN: Soft, mildly distended, nontender; no hepatosplenomegaly; bowel sounds are present in all four quadrants. Midline drsg d/i. J tube with TF EXTREMITIES: Generalized edema. SKIN: Normal; no rash; no jaundice. LABORATORY TECH: No focal deficits; lethargic and oriented times three. Generalized weakness (Bartholomew,Irma Marshallissa COMPUTER INSTALLATION ENGINEER) Assessment and Plan Plan ASSESSMENT: - Recurrent GI Bleeding secondary to large duodenal ulcer. S/P Multiple EGDs, Enteroscopies, Colonoscopies. He was having recurrent bleeding despite endoscopic treatment and therefore tx to [facility] on 02/24/16. S/P small bowel enteroscopy on (02/24/16) and this revealed an active spurting vessel in the second portion of the duodenum and this was treated with epinephrine and 2 clips. 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 He then developed rebleeding on 03/01/16 and then went to OR for an exploratory laparotomy, [place] pyloroplasty with selective vagotomy, and J tube placement. He was tx back to this facility 03/14/16 for further treatment. HH on admission was 6.3/19.1. He was given 2 units of PRBC and was 9.2/27.6 post transfusion. There is no obvious active bleeding and he is not having any n/v/pain. He is tolerating regular diet, but with poor po intake. TF via J tube Glucerna 1.5 at 30cc/hr. PPI. No signos of active bleeding. HH today is 8.9/27.0. - S/P exploratory laparotomy, [place] pyloroplasty with selective vagotomy,and J tube placement (03/01) for rebleeding at [facility]. Tx to this facility 03/14. GS consulted. JOVANI per GS, wean TF once tolerating diet.. - FEN. Clear liquids per GS. Glucerna 1.5 at 30cc/hr. - Anemia secondary to blood loss, S/P 2 units PRBC on arrival to hospital. HH stable 8.9/27.0. - Severe deconditioning. PT - CMP, DM, CAD, HTN per primary PLAN: - Regular diet per GS - Cont. Glucerna 1.5 at 30cc/hr until tolerating and eating regular diet - PPI - Monitor HH - Transfuse as necessary - CBC in am - Physical therapy - Notify GI of active bleeding - GI will sign off, please reconsult as needed - Pt seen and examined by Dr. Krishnamurthy and myself and this note is written on his behalf (Irma Bartholomew) Physician Comments Patient seen and examined Agree with above Continue with current supportive care Monitor labs GI will sign off at this point (Tani Krishnamurthy MD) Irma Bartholomew Mar 17, 2016 17:21 Tani Krishnamurthy MD Mar 17, 2016 20:07
[2016-03-17] MEDS: PRAVASTATIN SOD 10 MG TAB PO SCH (21:30)
[2016-03-17] MEDS: PRAVASTATIN SOD 20 MG TAB PO SCH (21:31)
[2016-03-18] VITALS: BP 114/65; PULSE 62; RESP 18; TEMP 97.2; O2SAT 96
[2016-03-18 06:03] VITALS: BP 124/64; PULSE 61; RESP 18; TEMP 97.3; O2SAT 98
[2016-03-18] MEDS: ISOSORBIDE MONONITRATE 30 MG TAB PO SCH (06:18)
[2016-03-18] MEDS: INSULIN ASPART SUPPLEMENTAL SCALE SQ SCH ×4 (06:25→20:48)
[2016-03-18 07:16] LABS: BICARBONATE 34.6 MEQ/L (21.0-32.0); POTASSIUM 4.9 MEQ/L (3.5-5.1)
[2016-03-18 08:00] VITALS: BP 132/66; PULSE 69; RESP 18; TEMP 97.1; O2SAT 99
[2016-03-18] MEDS: NUTRITIONAL SUPPLEMENTS PO SCH ×3 (08:30→14:52)
[2016-03-18] MEDS: SODIUM CHLORIDE 0.9% FLUSH 5 ML FLUSH FLUSH SCH ×2 (08:31→20:48)
[2016-03-18] MEDS: CLOPIDOGREL 75 MG TAB PO SCH (08:31)
[2016-03-18] MEDS: CARVEDILOL 3.125 MG TAB PO SCH ×2 (08:31→20:47)
[2016-03-18] MEDS: GABAPENTIN 300 MG CAP PO SCH ×2 (08:31→20:46)
[2016-03-18] MEDS: PANTOPRAZOLE SOD 40 MG DELAYED RELEASE TAB PO SCH ×2 (08:31→20:47)
[2016-03-18] MEDS: ASPIRIN EC 81 MG TABEC PO SCH (08:32)
[2016-03-18] MEDS: FUROSEMIDE 40 MG TAB PO SCH ×2 (08:32→17:02)
[2016-03-18] MEDS: MULTIVITAMIN TAB PO SCH (08:32)
[2016-03-18] MEDS: PRAZOSIN HCL 1 MG CAP PO SCH ×2 (08:32→20:47)
--- NOTE | 2016-03-18 10:39 | HHI.PR ---
Subjective Remarks No new complaints today Pt not eating much of anything by mouth Tolerating TF at 30mL/hr Pt had a BM yesterday Denies any abd pain Pt has not been OOB today, per the PT notes he walked 3ft x 2 yesterday Objective Vitals Vital Signs Date Time Temp Pulse Resp B/P Pulse Ox O2 Delivery O2 Flow Rate FiO2 03/18/16 08:00 97.1 69 18 132/66 99 03/18/16 06:03 97.3 61 18 124/64 98 03/18/16 00:00 97.2 62 18 114/65 96 03/17/16 21:44 97 Nasal Cannula 2.00 03/17/16 20:00 97.5 66 18 120/70 100 03/17/16 19:51 63 03/17/16 16:00 97.2 60 17 121/69 97 03/17/16 12:00 97.8 65 17 128/72 98 03/17/16 11:40 97 Nasal Cannula 2.00 03/17/16 03/17/16 03/18/16 15:00 23:00 07:00 Intake Total 240 ml 807 ml Output Total 1500 ml 400 ml Balance -1260 ml 407 ml Intake Oral 240 ml Tube Feeding 807 ml Output Urine Total 1500 ml 400 ml # Bowel Movements 1 1 Result Diagram: 03/17/16 0626 03/18/16 0607 Other Results Laboratory Tests Test 03/17/16 03/18/16 06:26 06:07 White Blood Count 14.6 TH/MM3 Red Blood Count 3.13 MIL/MM3 Hemoglobin 8.9 GM/DL Hematocrit 27.0 % Mean Corpuscular Volume 86.4 FL Mean Corpuscular Hemoglobin 28.6 PG Mean Corpuscular Hemoglobin 33.1 % Concent Red Cell Distribution Width 16.8 % Platelet Count 408 TH/MM3 Mean Platelet Volume 7.8 FL Neutrophils (%) (Auto) % Lymphocytes (%) (Auto) % Monocytes (%) (Auto) % Eosinophils (%) (Auto) % Basophils (%) (Auto) % Neutrophils # (Auto) TH/MM3 Lymphocytes # (Auto) TH/MM3 Monocytes # (Auto) TH/MM3 Eosinophils # (Auto) TH/MM3 Basophils # (Auto) TH/MM3 CBC Comment AUTO DIFF Differential Total Cells 100 Counted Neutrophils % (Manual) 93 % Lymphocytes % 5 % Monocytes % 1 % Eosinophils % 1 % Neutrophils # (Manual) 13.6 TH/MM3 Differential Comment FINAL DIFF MANUAL Platelet Estimate NORMAL Platelet Morphology Comment NORMAL Ovalocytes 1+ Hematology Comments Sodium Level 137 MEQ/L 136 MEQ/L Potassium Level 5.4 MEQ/L 4.9 MEQ/L Chloride Level 100 MEQ/L 96 MEQ/L Carbon Dioxide Level 29.4 MEQ/L 34.6 MEQ/L Anion Gap 8 MEQ/L 5 MEQ/L Blood Urea Nitrogen 19 MG/DL 18 MG/DL Creatinine 0.89 MG/DL 0.91 MG/DL Estimat Glomerular Filtration 106 ML/MIN 104 ML/MIN Rate Random Glucose 149 MG/DL 160 MG/DL Calcium Level 7.7 MG/DL 7.6 MG/DL Total Bilirubin 0.3 MG/DL Direct Bilirubin 0.1 MG/DL Indirect Bilirubin 0.2 MG/DL Aspartate Amino Transf 17 U/L (AST/SGOT) Alanine Aminotransferase 17 U/L (ALT/SGPT) Alkaline Phosphatase 160 U/L Total Protein 5.3 GM/DL Albumin 1.7 GM/DL Imaging Last Impressions Chest X-Ray 03/15/16 0800 Signed Impressions: Service Date/Time: Tuesday, March 15, 2016 07:55 - CONCLUSION: Small to moderate bilateral effusions with central pulmonary congestion and basilar airspace disease. Findings are characteristic of congestive heart failure. Stable pacemaker. Rich Baldwin MD Last Impressions Chest X-Ray 03/13/16 2141 Signed Impressions: Service Date/Time: Sunday, March 13, 2016 22:02 - CONCLUSION: Pulmonary vascular congestion, CHF with right pleural effusion Burt Sears MD Objective Remarks General: ill appearing male in NAD, AAOx3 Chest: CTA bilaterally Cardiac: Regular Abd: +BS, midline incision is clean and dry, dressings in place, J-tube in place , no erythema or drainage Ext: No edema Romero cath in place A/P Problem List: (1) H/O pyloroplasty Status: Acute Plan: - Pt with previous CABG in December then presented to [place] in February with cellulitis and PNA - Pt developed GIB and duodenal ulcer noted and was sent to [place] for persistent bleeding of unclear etiology. - Pt received a total 28 units blood but continued to have bleeding and was then taken to [facility] on 02/24/16. Pt underwent small bowel enteroscopy on (02/24/16) and this revealed an active spurting vessel in the second portion of the duodenum and this was treated with epinephrine and 2 clips. 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 He then developed rebleeding on 03/01/16 and then went to OR for an exploratory laparotomy, [place] pyloroplasty with selective vagotomy, and J tube placement. - He was tx back to [facility] on 03/14/16 on tube feeding and with severe anemia. - Pt was given 2 units of blood for hgb 6. Also his midline abdomen wound was dehiscing. - H/H is stable currently, no evidence of active bleeding. - The case was previously discussed between Dr. Black and Dr Bridges and pt will wean off tube feeding, cont. local wound care and no need for wound vac over abdomen wound. - Pts diet was advanced but he is not eating much of anything by mouth due to poor appetite. - PT and get OOB - Plan for d/c to SNF in [place] in next 1-2 days. (2) Anemia, blood loss Status: Acute Plan: - See above (3) Cardiomyopathy Status: Chronic Plan: - Cont his current medication. - BB/diuretic. - Hold arb - Lasix 40mg BID IV (4) Diabetes Status: Chronic Plan: - SSI (5) CAD (coronary artery disease) Status: Chronic Plan: - CABG 12/2015 - ASA, Plavix, Coreg, Imdur, Pravachol (6) Hypertension Status: Chronic Plan: - Stable - Coreg Assessment and Plan Patient examined. Assessment and plan formulated with Addie Dixon PA-C. I agree with the above. wean tf. increase po. cont diuretics PT dvt prophylaxis. mucomyst for pulmonary congestion. snf soon. Problem Qualifiers (1) Cardiomyopathy: Qualified Code: I42.9 - Cardiomyopathy, unspecified type (2) Diabetes: Qualified Code: E11.8 - Type 2 diabetes mellitus with complication, with long- term current use of insulin (3) CAD (coronary artery disease): Qualified Code: I25.10 - Coronary artery disease involving [place] heart without angina pectoris, unspecified vessel or lesion type (4) Hypertension: Qualified Code: I10 - Essential hypertension Addie Dixon Mar 18, 2016 10:39 Dick Black MD Mar 18, 2016 17:03
[2016-03-18 12:00] VITALS: BP 115/69; PULSE 69; RESP 16; TEMP 98.1; O2SAT 99
[2016-03-18 16:00] VITALS: BP 108/62; PULSE 69; RESP 18; TEMP 98.1; O2SAT 95
[2016-03-18 20:00] VITALS: BP 103/61; PULSE 63; PULSE 70; RESP 20; TEMP 97.7; O2SAT 96
[2016-03-18] MEDS: RESP: ACETYLCYSTEINE 20% 30 ML NEB NEB SCH ×2 (20:00→21:13)
[2016-03-18] MEDS: PRAVASTATIN SOD 20 MG TAB PO SCH (20:47)
[2016-03-18] MEDS: PRAVASTATIN SOD 10 MG TAB PO SCH (20:49)
[2016-03-19] VITALS (7 sets, daily range): BP systolic 103–112; BP diastolic 63–74; PULSE 63–93; RESP 16–20; TEMP 96.4–98.7; O2SAT 92–100
[2016-03-19] MEDS: ISOSORBIDE MONONITRATE 30 MG TAB PO SCH (05:24)
[2016-03-19] MEDS: INSULIN ASPART SUPPLEMENTAL SCALE SQ SCH ×4 (06:18→21:00)
[2016-03-19] MEDS: NUTRITIONAL SUPPLEMENTS PO SCH ×3 (08:28→15:00)
[2016-03-19] MEDS: ASPIRIN EC 81 MG TABEC PO SCH (08:31)
[2016-03-19] MEDS: CLOPIDOGREL 75 MG TAB PO SCH (08:31)
[2016-03-19] MEDS: MULTIVITAMIN TAB PO SCH (08:31)
[2016-03-19] MEDS: CARVEDILOL 3.125 MG TAB PO SCH (08:31)
[2016-03-19] MEDS: PANTOPRAZOLE SOD 40 MG DELAYED RELEASE TAB PO SCH (08:31)
[2016-03-19] MEDS: PRAZOSIN HCL 1 MG CAP PO SCH (08:31)
[2016-03-19] MEDS: FUROSEMIDE 40 MG TAB PO SCH (08:31)
[2016-03-19] MEDS: GABAPENTIN 300 MG CAP PO SCH (08:31)
[2016-03-19] MEDS: SODIUM CHLORIDE 0.9% FLUSH 5 ML FLUSH FLUSH SCH ×2 (08:31→21:00)
[2016-03-19] MEDS: RESP: ACETYLCYSTEINE 20% 30 ML NEB NEB SCH ×4 (09:32→19:33)
--- NOTE | 2016-03-19 11:08 | HHI.PR ---
Subjective Remarks ate supplement but not breakfast. more lung congestion. Objective Vitals heart reg lung wet cough and rhonci abd s/nt ext trace edema/penile edema solitario Vital Signs Date Time Temp Pulse Resp B/P Pulse Ox O2 Delivery O2 Flow Rate FiO2 03/19/16 09:34 96 Nasal Cannula 2.00 03/19/16 08:00 96.9 84 18 112/70 100 03/19/16 03:48 98.1 63 16 107/63 96 03/19/16 00:00 98.7 93 18 103/64 92 03/18/16 20:00 97.7 70 20 103/61 96 03/18/16 20:00 63 03/18/16 16:00 98.1 69 18 108/62 95 03/18/16 12:00 98.1 69 16 115/69 99 03/18/16 03/18/16 03/19/16 15:00 23:00 07:00 Intake Total 614 ml Output Total 600 ml 650 ml Balance -600 ml -36 ml Tube Feeding 614 ml Output Urine Total 600 ml 650 ml Tube Feeding Residual Discard 0 ml Result Diagram: 03/17/16 0626 03/18/16 0607 Imaging Last Impressions Chest X-Ray 03/15/16 0800 Signed Impressions: Service Date/Time: Tuesday, March 15, 2016 07:55 - CONCLUSION: Small to moderate bilateral effusions with central pulmonary congestion and basilar airspace disease. Findings are characteristic of congestive heart failure. Stable pacemaker. Rich Baldwin MD Last Impressions Chest X-Ray 03/13/161 Signed Impressions: Service Date/Time: Sunday, March 13, 2016 22:02 - CONCLUSION: Pulmonary vascular congestion, CHF with right pleural effusion Burt Sears MD A/P Problem List: (1) H/O pyloroplasty Status: Acute Plan: - Pt with previous CABG in December then presented to [place] in February with cellulitis and PNA - Pt developed GIB and duodenal ulcer noted and was sent to [place] for persistent bleeding of unclear etiology. - Pt received a total 28 units blood but continued to have bleeding and was then taken to [facility] on 02/24/16. Pt underwent small bowel enteroscopy on (02/24/16) and this revealed an active spurting vessel in the second portion of the duodenum and this was treated with epinephrine and 2 clips. 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 He then developed rebleeding on 03/01/16 and then went to OR for an exploratory laparotomy, [place] pyloroplasty with selective vagotomy, and J tube placement. - He was tx back to [facility] on 03/14/16 on tube feeding and with severe anemia. - Pt was given 2 units of blood for hgb 6. Also his midline abdomen wound was dehiscing. - H/H is stable currently, no evidence of active bleeding. -Pt with more pulmonary congestion. could be that he is aspirating. also has poor cough/inspiratory effort. also chf. - wean off tube feeding, cont. local wound care and no need for wound vac over abdomen wound. - Pts diet was advanced but he is not eating much of anything by mouth due to poor appetite. He might be aspirating on thin liquid. will get speech therapy and thicken food -get oob. incentive spirometer. nebs/mucolytic -will cont lasix in iv. check cxr. - hold d/c. (2) Anemia, blood loss Status: Acute Plan: - See above (3) Cardiomyopathy Status: Chronic Plan: - Cont his current medication. - see above (4) Diabetes Status: Chronic Plan: - SSI (5) CAD (coronary artery disease) Status: Chronic Plan: - CABG 12/2015 - ASA, Plavix, Coreg, Imdur, Pravachol (6) Hypertension Status: Chronic Plan: - Stable - Coreg Problem Qualifiers (1) Cardiomyopathy: Qualified Code: I42.9 - Cardiomyopathy, unspecified type (2) Diabetes: Qualified Code: E11.8 - Type 2 diabetes mellitus with complication, with long- term current use of insulin (3) CAD (coronary artery disease): Qualified Code: I25.10 - Coronary artery disease involving [place] heart without angina pectoris, unspecified vessel or lesion type (4) Hypertension: Qualified Code: I10 - Essential hypertension Dick Black MD Mar 19, 2016 11:08
[2016-03-19] MEDS ORDERED: FUROSEMIDE 40 MG/4 ML VIAL IV PUSH ONE (11:15)
[2016-03-19] MEDS: RESP: ALBUTEROL 2.5 MG/IPRATROPIUM 0.5 MG NEB (SCH) NEB ×3 (13:26→19:33)
--- NOTE | 2016-03-19 13:46 | RADRPT ---
EXAM DATE/TIME: 03/19/2016 12:08 [facility] COMPARISON: CHEST SINGLE AP, March 13, 2016, 22:02. INDICATIONS: Cough, short of breath MEDICAL HISTORY: Cardiovascular disease. SURGICAL HISTORY: CABG. Pacemaker. ENCOUNTER: Subsequent ACUITY: 3 days PAIN SCORE: Non-responsive. LOCATION: Bilateral chest FINDINGS: Pacemaker is implanted on the left. The heart is enlarged. Mild interstitial edema is present. Sma ll pleural effusion is noted on the right. Sternal wires from bypass are noted. CONCLUSION: Stable chest, cardiomegaly and mild interstitial edema. Oscar Mcmanus MD FACR on March 19, 2016 at 13:14 Board Certified Radiologist. This report was verified electronically.
[2016-03-19] MEDS: FUROSEMIDE 40 MG/4 ML VIAL IV PUSH SCH (17:18)
[2016-03-20] VITALS (10 sets, daily range): BP systolic 104–141; BP diastolic 61–79; PULSE 65–81; RESP 18–20; TEMP 96.1–98; O2SAT 95–98
[2016-03-20] MEDS: PANTOPRAZOLE SOD 40 MG DELAYED RELEASE TAB PO SCH ×3 (00:21→22:42)
[2016-03-20] MEDS: PRAZOSIN HCL 1 MG CAP PO SCH ×3 (00:21→22:42)
[2016-03-20] MEDS: PRAVASTATIN SOD 20 MG TAB PO SCH ×2 (00:21→22:42)
[2016-03-20] MEDS: GABAPENTIN 300 MG CAP PO SCH ×3 (00:21→22:42)
[2016-03-20] MEDS: PRAVASTATIN SOD 10 MG TAB PO SCH ×2 (00:21→22:42)
[2016-03-20] MEDS: CARVEDILOL 3.125 MG TAB PO SCH ×3 (00:21→22:42)
[2016-03-20] MEDS: RESP: ACETYLCYSTEINE 20% 30 ML NEB NEB SCH ×6 (00:40→20:00)
[2016-03-20] MEDS: RESP: ALBUTEROL 2.5 MG/IPRATROPIUM 0.5 MG NEB (SCH) NEB ×4 (00:46→19:59)
[2016-03-20] MEDS: ISOSORBIDE MONONITRATE 30 MG TAB PO SCH (06:40)
[2016-03-20] MEDS: INSULIN ASPART SUPPLEMENTAL SCALE SQ SCH ×4 (07:00→21:00)
[2016-03-20] MEDS: NUTRITIONAL SUPPLEMENTS PO SCH ×3 (09:00→16:58)
[2016-03-20] MEDS: MULTIVITAMIN TAB PO SCH (09:18)
[2016-03-20] MEDS: CLOPIDOGREL 75 MG TAB PO SCH (09:18)
[2016-03-20] MEDS: FUROSEMIDE 40 MG/4 ML VIAL IV PUSH SCH ×2 (09:18→16:55)
[2016-03-20] MEDS: ASPIRIN EC 81 MG TABEC PO SCH (09:18)
[2016-03-20] MEDS: SODIUM CHLORIDE 0.9% FLUSH 5 ML FLUSH FLUSH SCH ×2 (09:19→21:00)
[2016-03-20 09:31] LABS: BICARBONATE 35.5 MEQ/L (21.0-32.0); MAGNESIUM 2.2 MG/DL (1.5-2.5); POTASSIUM 4.8 MEQ/L (3.5-5.1)
--- NOTE | 2016-03-20 11:28 | HHI.PR ---
Subjective Remarks diarrhea again this AM. breathing somewhat better ate better today. Objective Vitals nad heart reg lung course congestion upper chest abd j tube/bs/nt ext no edema gu: penile edema better. solitario Vital Signs Date Time Temp Pulse Resp B/P Pulse Ox O2 Delivery O2 Flow Rate FiO2 03/20/16 09:20 96.2 66 18 106/67 98 03/20/16 08:29 97 Nasal Cannula 2.00 03/20/16 04:00 97.0 65 20 119/66 97 03/20/16 00:40 96 Nasal Cannula 2.00 03/20/16 00:00 98.0 68 20 117/66 97 03/19/16 19:33 97 Nasal Cannula 2.00 03/19/16 16:00 96.4 82 20 112/74 100 03/19/16 12:00 97.1 84 20 110/68 100 03/19/16 03/19/16 03/20/16 15:00 23:00 07:00 Intake Total 480 ml 240 ml 240 ml Output Total 900 ml 400 ml 450 ml Balance -420 ml -160 ml -210 ml Intake Oral 480 ml 240 ml 240 ml Output Urine Total 900 ml 400 ml 450 ml # Bowel Movements 2 0 0 Result Diagram: 03/17/16 0626 03/20/16 0750 Imaging Last Impressions Chest X-Ray 03/15/16 0800 Signed Impressions: Service Date/Time: Tuesday, March 15, 2016 07:55 - CONCLUSION: Small to moderate bilateral effusions with central pulmonary congestion and basilar airspace disease. Findings are characteristic of congestive heart failure. Stable pacemaker. Rich Baldwin MD Last Impressions Chest X-Ray 03/13/161 Signed Impressions: Service Date/Time: Sunday, March 13, 2016 22:02 - CONCLUSION: Pulmonary vascular congestion, CHF with right pleural effusion Burt Sears MD A/P Problem List: (1) H/O pyloroplasty Status: Acute Plan: - Pt with previous CABG in December then presented to [place] in February with cellulitis and PNA - Pt developed GIB and duodenal ulcer noted and was sent to [place] for persistent bleeding of unclear etiology. - Pt received a total 28 units blood but continued to have bleeding and was then taken to [facility] on 02/24/16. Pt underwent small bowel enteroscopy on (02/24/16) and this revealed an active spurting vessel in the second portion of the duodenum and this was treated with epinephrine and 2 clips. 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 He then developed rebleeding on 03/01/16 and then went to OR for an exploratory laparotomy, [place] pyloroplasty with selective vagotomy, and J tube placement. - He was tx back to [facility] on 03/14/16 on tube feeding and with severe anemia. - Pt was given 2 units of blood for hgb 6. Also his midline abdomen wound was dehiscing. - H/H is stable currently, no evidence of active bleeding. -Pt with more pulmonary congestion. no aspiration on official evaluation.. also has poor cough/inspiratory effort. also chf. - wean off tube feeding, cont. local wound care and no need for wound vac over abdomen wound. - Pts diet was advanced . -get oob. incentive spirometer. nebs/mucolytic -will cont lasix in iv. - hold d/c. until next week -doubt cdiff but check prior to immodium. prob related to tube feeding. (2) Anemia, blood loss Status: Acute Plan: - See above (3) Cardiomyopathy Status: Chronic Plan: - Cont his current medication. - see above (4) Diabetes Status: Chronic Plan: - SSI (5) CAD (coronary artery disease) Status: Chronic Plan: - CABG 12/2015 - ASA, Plavix, Coreg, Imdur, Pravachol (6) Hypertension Status: Chronic Plan: - Stable - Coreg Problem Qualifiers (1) Cardiomyopathy: Qualified Code: I42.9 - Cardiomyopathy, unspecified type (2) Diabetes: Qualified Code: E11.8 - Type 2 diabetes mellitus with complication, with long- term current use of insulin (3) CAD (coronary artery disease): Qualified Code: I25.10 - Coronary artery disease involving [place] heart without angina pectoris, unspecified vessel or lesion type (4) Hypertension: Qualified Code: I10 - Essential hypertension Dick Black MD Mar 20, 2016 11:28
[2016-03-21] VITALS (13 sets, daily range): BP systolic 88–132; BP diastolic 57–70; PULSE 60–80; RESP 16–20; TEMP 96.1–98.6; O2SAT 90–98
[2016-03-21] MEDS: RESP: ACETYLCYSTEINE 20% 30 ML NEB NEB SCH ×7 (04:00→23:50)
[2016-03-21] MEDS: INSULIN ASPART SUPPLEMENTAL SCALE SQ SCH ×4 (05:38→21:00)
[2016-03-21] MEDS: ISOSORBIDE MONONITRATE 30 MG TAB PO SCH (05:38)
[2016-03-21 07:46] LABS: AUTOMATED NEUTROPHIL # 8.8 TH/MM3 (1.8-7.7); BASOPHIL # 0.1 TH/MM3 (0-0.2); BASOPHIL % 0.6 % (0.0-2.0); EOSINOPHIL # 0.4 TH/MM3 (0-0.4); EOSINOPHIL % 3.9 % (0.0-4.0); HEMATOCRIT 22.3 % (39.0-51.0); HEMO FLAGS DIFF FINAL; LYMPH % 6.3 % (9.0-44.0); LYMPHOCYTE # 0.7 TH/MM3 (1.0-4.8); MEAN CELL VOLUME 86.2 FL (80.0-100.0); MEAN CORPUSCULAR HEMOGLOBIN 29.2 PG (27.0-34.0); MEAN CORPUSCULAR HGB CONC 33.8 % (32.0-36.0); MONO % 5.8 % (0.0-8.0); NEUT % 83.4 % (16.0-70.0); PLATELET COUNT 411 TH/MM3 (150-450); RED BLOOD COUNT 2.58 MIL/MM3 (4.50-5.90); WHITE BLOOD COUNT 10.5 TH/MM3 (4.0-11.0)
[2016-03-21 08:05] LABS: BICARBONATE 37.8 MEQ/L (21.0-32.0); POTASSIUM 4.6 MEQ/L (3.5-5.1)
[2016-03-21] MEDS: RESP: ALBUTEROL 2.5 MG/IPRATROPIUM 0.5 MG NEB (SCH) NEB ×4 (08:30→21:32)
[2016-03-21] MEDS: NUTRITIONAL SUPPLEMENTS PO SCH ×3 (09:00→18:00)
[2016-03-21] MEDS: SODIUM CHLORIDE 0.9% FLUSH 5 ML FLUSH FLUSH SCH ×2 (09:00→21:00)
[2016-03-21] MEDS: CLOPIDOGREL 75 MG TAB PO SCH (10:52)
[2016-03-21] MEDS: PRAZOSIN HCL 1 MG CAP PO SCH ×2 (10:52→22:13)
[2016-03-21] MEDS: ASPIRIN EC 81 MG TABEC PO SCH (10:52)
[2016-03-21] MEDS: PANTOPRAZOLE SOD 40 MG DELAYED RELEASE TAB PO SCH ×2 (10:53→22:13)
[2016-03-21] MEDS: GABAPENTIN 300 MG CAP PO SCH ×2 (10:53→21:00)
[2016-03-21] MEDS: FUROSEMIDE 40 MG/4 ML VIAL IV PUSH SCH (10:53)
[2016-03-21] MEDS: MULTIVITAMIN TAB PO SCH (10:53)
[2016-03-21] MEDS: CARVEDILOL 3.125 MG TAB PO SCH ×2 (10:53→21:00)
--- NOTE | 2016-03-21 13:27 | HHI.PR ---
Subjective Remarks seems to be eating more no diarrhea today. Objective Vitals heart reg lung course upper lung sounds abd j tube. bs. midline incision with 2 areas of dehiscence currently packed ext no edema mild penile edema. solitario. Vital Signs Date Time Temp Pulse Resp B/P Pulse Ox O2 Delivery O2 Flow Rate FiO2 03/21/16 12:00 96.1 77 18 88/57 96 03/21/16 08:30 96 Nasal Cannula 1.00 03/21/16 08:01 96.5 60 16 105/61 96 03/21/16 04:00 98.0 67 18 103/61 98 03/21/16 01:00 98.0 67 18 106/62 90 03/20/16 21:00 97.0 81 18 129/78 98 03/20/16 20:00 95 Nasal Cannula 2.00 03/20/16 18:00 73 03/20/16 16:00 97.6 72 18 104/61 98 03/20/16 03/20/16 03/21/16 15:00 23:00 07:00 Output Total 0 ml 3000 ml Balance 0 ml -3000 ml Output Urine Total 3000 ml Tube Feeding Residual Discard 0 ml Result Diagram: 03/21/16 0655 03/21/16 0655 Imaging Last Impressions Chest X-Ray 03/15/16 0800 Signed Impressions: Service Date/Time: Tuesday, March 15, 2016 07:55 - CONCLUSION: Small to moderate bilateral effusions with central pulmonary congestion and basilar airspace disease. Findings are characteristic of congestive heart failure. Stable pacemaker. Rich Baldwin MD Last Impressions Chest X-Ray 03/13/162140 Signed Impressions: Service Date/Time: Sunday, March 13, 2016 22:02 - CONCLUSION: Pulmonary vascular congestion, CHF with right pleural effusion Burt Sears MD A/P Problem List: (1) H/O pyloroplasty Status: Acute Plan: - Pt with previous CABG in December then presented to [place] in February with cellulitis and PNA - Pt developed GIB and duodenal ulcer noted and was sent to [place] for persistent bleeding of unclear etiology. - Pt received a total 28 units blood but continued to have bleeding and was then taken to [facility] on 02/24/16. Pt underwent small bowel enteroscopy on (02/24/16) and this revealed an active spurting vessel in the second portion of the duodenum and this was treated with epinephrine and 2 clips. 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 He then developed rebleeding on 03/01/16 and then went to OR for an exploratory laparotomy, Edel pyloroplasty with selective vagotomy, and J tube placement. - He was tx back to [facility] on 03/14/16 on tube feeding and with severe anemia. - Pt was given 2 units of blood for hgb 6. Also his midline abdomen wound was dehiscing. -Pt with more pulmonary congestion. no aspiration on official evaluation.. also has poor cough/inspiratory effort. also chf. -today the hgb trending down with lower bp. - wean off tube feeding, if eating most of trays might try to stop TF tomorrow. - cont. local wound care and no need for wound vac over abdomen wound. ge surg following - more anemic today with lower bp. will give 2 units blood with lasix. will let GI know if we see any bleeding. - d/c iv lasix and convert back to po lasix tomorrow for his chf if stable -get oob. incentive spirometer. nebs/mucolytic -plan for d/c to snf this week if stable. (2) Anemia, blood loss Status: Acute Plan: - See above (3) Cardiomyopathy Status: Chronic Plan: - Cont his current medication. - see above (4) Diabetes Status: Chronic Plan: - SSI (5) CAD (coronary artery disease) Status: Chronic Plan: - CABG 12/2015 - ASA, Plavix, Coreg, Imdur, Pravachol (6) Hypertension Status: Chronic Plan: - Stable - Coreg Problem Qualifiers (1) Cardiomyopathy: Qualified Code: I42.9 - Cardiomyopathy, unspecified type (2) Diabetes: Qualified Code: E11.8 - Type 2 diabetes mellitus with complication, with long- term current use of insulin (3) CAD (coronary artery disease): Qualified Code: I25.10 - Coronary artery disease involving [place] heart without angina pectoris, unspecified vessel or lesion type (4) Hypertension: Qualified Code: I10 - Essential hypertension Dick Black MD Mar 21, 2016 13:27
[2016-03-21] MEDS ORDERED: FUROSEMIDE 20 MG/2 ML VIAL IV PUSH ONE (13:30)
[2016-03-21] MEDS: PRAVASTATIN SOD 20 MG TAB PO SCH (22:13)
[2016-03-21] MEDS: PRAVASTATIN SOD 10 MG TAB PO SCH (22:13)
[2016-03-21] MEDS: RESP: ALBUTEROL 2.5 MG/IPRATROPIUM 0.5 MG NEB (PRN) NEB (23:50)
[2016-03-22] VITALS (14 sets, daily range): BP systolic 93–123; BP diastolic 52–87; PULSE 57–84; RESP 18–20; TEMP 96.9–101; O2SAT 92–98
[2016-03-22] MEDS ORDERED: FUROSEMIDE 20 MG/2 ML VIAL IV PUSH ONE
[2016-03-22] MEDS: RESP: ALBUTEROL 2.5 MG/IPRATROPIUM 0.5 MG NEB (PRN) NEB (04:57)
[2016-03-22] MEDS: RESP: ACETYLCYSTEINE 20% 30 ML NEB NEB SCH ×2 (04:57→16:21)
[2016-03-22] MEDS: ISOSORBIDE MONONITRATE 30 MG TAB PO SCH (06:14)
[2016-03-22] MEDS: INSULIN ASPART SUPPLEMENTAL SCALE SQ SCH ×4 (06:20→20:48)
[2016-03-22 08:32] LABS: AUTOMATED NEUTROPHIL # 10.4 TH/MM3 (1.8-7.7); BASOPHIL # 0.1 TH/MM3 (0-0.2); BASOPHIL % 0.5 % (0.0-2.0); EOSINOPHIL # 0.3 TH/MM3 (0-0.4); EOSINOPHIL % 2.4 % (0.0-4.0); HEMATOCRIT 28.6 % (39.0-51.0); HEMO FLAGS DIFF FINAL; LYMPHOCYTE # 0.6 TH/MM3 (1.0-4.8); MEAN CELL VOLUME 83.6 FL (80.0-100.0); MEAN CORPUSCULAR HEMOGLOBIN 27.2 PG (27.0-34.0); MEAN CORPUSCULAR HGB CONC 32.5 % (32.0-36.0); MONO % 4.8 % (0.0-8.0); NEUT % 87.3 % (16.0-70.0); PLATELET COUNT 412 TH/MM3 (150-450); RED BLOOD COUNT 3.42 MIL/MM3 (4.50-5.90); RED CELL DISTRIBUTION WIDTH 17.9 % (11.6-17.2); WHITE BLOOD COUNT 11.9 TH/MM3 (4.0-11.0)
[2016-03-22 08:34] LABS: BICARBONATE 37.1 MEQ/L (21.0-32.0); POTASSIUM 4.2 MEQ/L (3.5-5.1)
[2016-03-22] MEDS: RESP: ALBUTEROL 2.5 MG/IPRATROPIUM 0.5 MG NEB (SCH) NEB ×4 (08:41→19:53)
[2016-03-22] MEDS: NUTRITIONAL SUPPLEMENTS PO SCH ×3 (09:00→17:23)
[2016-03-22] MEDS: SODIUM CHLORIDE 0.9% FLUSH 5 ML FLUSH FLUSH SCH ×2 (09:00→20:49)
[2016-03-22] MEDS: CARVEDILOL 3.125 MG TAB PO SCH ×2 (09:06→20:47)
[2016-03-22] MEDS: GABAPENTIN 300 MG CAP PO SCH ×2 (09:06→20:47)
[2016-03-22] MEDS: PRAZOSIN HCL 1 MG CAP PO SCH ×2 (09:06→20:47)
[2016-03-22] MEDS: CLOPIDOGREL 75 MG TAB PO SCH (09:07)
[2016-03-22] MEDS: PANTOPRAZOLE SOD 40 MG DELAYED RELEASE TAB PO SCH ×2 (09:07→20:47)
[2016-03-22] MEDS: MULTIVITAMIN TAB PO SCH (09:07)
[2016-03-22] MEDS: ASPIRIN EC 81 MG TABEC PO SCH (09:07)
--- NOTE | 2016-03-22 16:20 | HHI.PR ---
Subjective Remarks Pt reports that he still feels tired today No much of an appetite and did not eat much today, small amount of toast for breakfast otherwise nothing and has not touched his lunch tray Still with a cough but doesn't feel like he can bring anything up No fevers Denies any melena or BRBPR Last BM was yesterday Pt refused PT twice today Objective Vitals Vital Signs Date Time Temp Pulse Resp B/P Pulse Ox O2 Delivery O2 Flow Rate FiO2 03/22/16 14:14 72 03/22/16 12:00 96.9 58 18 118/78 96 03/22/16 08:41 92 Nasal Cannula 2.00 03/22/16 08:00 98.1 75 18 119/64 96 03/22/16 06:25 98.4 67 19 115/68 03/22/16 04:00 98.0 61 20 93/52 98 03/22/16 03:10 98.4 67 20 105/70 97 03/22/16 02:55 98.5 66 20 110/65 97 03/22/16 02:40 98.5 67 19 108/63 98 03/22/16 00:00 99.1 69 20 110/71 96 03/21/16 21:40 98.6 70 19 110/68 97 03/21/16 21:35 98 Nasal Cannula 2.00 03/21/16 20:00 98.6 73 20 115/65 98 03/21/16 18:06 98.0 80 20 132/70 95 03/21/16 18:00 78 03/21/16 17:41 98.6 75 20 114/66 03/21/16 16:00 98.3 64 18 124/66 98 03/21/16 03/21/16 03/22/16 15:00 23:00 07:00 Intake Total 480 ml 120 ml Output Total 900 ml 900 ml Balance -420 ml -780 ml Intake Oral 480 ml 120 ml Output Urine Total 900 ml 900 ml # Bowel Movements 0 0 Result Diagram: 03/22/1630 03/22/16 0730 Other Results Laboratory Tests Test 03/21/16 03/21/16 03/22/16 06:55 14:25 07:30 White Blood Count 10.5 TH/MM3 11.9 TH/MM3 Red Blood Count 2.58 MIL/MM3 3.42 MIL/MM3 Hemoglobin 7.5 GM/DL 9.3 GM/DL Hematocrit 22.3 % 28.6 % Mean Corpuscular Volume 86.2 FL 83.6 FL Mean Corpuscular Hemoglobin 29.2 PG 27.2 PG Mean Corpuscular Hemoglobin 33.8 % 32.5 % Concent Red Cell Distribution Width 17.0 % 17.9 % Platelet Count 411 TH/MM3 412 TH/MM3 Mean Platelet Volume 7.3 FL 7.4 FL Neutrophils (%) (Auto) 83.4 % 87.3 % Lymphocytes (%) (Auto) 6.3 % 5.0 % Monocytes (%) (Auto) 5.8 % 4.8 % Eosinophils (%) (Auto) 3.9 % 2.4 % Basophils (%) (Auto) 0.6 % 0.5 % Neutrophils # (Auto) 8.8 TH/MM3 10.4 TH/MM3 Lymphocytes # (Auto) 0.7 TH/MM3 0.6 TH/MM3 Monocytes # (Auto) 0.6 TH/MM3 0.6 TH/MM3 Eosinophils # (Auto) 0.4 TH/MM3 0.3 TH/MM3 Basophils # (Auto) 0.1 TH/MM3 0.1 TH/MM3 CBC Comment DIFF FINAL DIFF FINAL Differential Comment Sodium Level 137 MEQ/L 136 MEQ/L Potassium Level 4.6 MEQ/L 4.2 MEQ/L Chloride Level 93 MEQ/L 92 MEQ/L Carbon Dioxide Level 37.8 MEQ/L 37.1 MEQ/L Anion Gap 6 MEQ/L 7 MEQ/L Blood Urea Nitrogen 21 MG/DL 21 MG/DL Creatinine 0.98 MG/DL 0.98 MG/DL Estimat Glomerular Filtration 95 ML/MIN 95 ML/MIN Rate Random Glucose 69 MG/DL 112 MG/DL Calcium Level 7.9 MG/DL 7.9 MG/DL Blood Type O POSITIVE Antibody Screen NEGATIVE Crossmatch Leukocyte-Reduced Red Blood Cells Blood Bank Comment Imaging Last Impressions Chest X-Ray 03/19/16 0000 Signed Impressions: Service Date/Time: Saturday, March 19, 2016 12:08 - CONCLUSION: Stable chest , cardiomegaly and mild interstitial edema. Oscar Mcmanus MD FACR Last Impressions Chest X-Ray 03/15/16 0800 Signed Impressions: Service Date/Time: Tuesday, March 15, 2016 07:55 - CONCLUSION: Small to moderate bilateral effusions with central pulmonary congestion and basilar airspace disease. Findings are characteristic of congestive heart failure. Stable pacemaker. Rich Baldwin MD Last Impressions Chest X-Ray 03/13/162140 Signed Impressions: Service Date/Time: Tuesday, March 13, 2016 22:02 - CONCLUSION: Pulmonary vascular congestion, CHF with right pleural effusion Burt Sears MD Objective Remarks General: NAD, AAOx3 Chest: Upper airway congestion Cardiac: Regular Abd: +BS, soft, J-tube in place. midline incision with 2 areas of dehiscence currently packed Ext: No edema A/P Problem List: (1) H/O pyloroplasty Status: Acute Plan: - Pt with previous CABG in December then presented to [place] in February with cellulitis and PNA - Pt developed GIB and duodenal ulcer noted and was sent to [place] for persistent bleeding of unclear etiology. - Pt received a total 28 units blood but continued to have bleeding and was then taken to [facility] on 02/24/16. Pt underwent small bowel enteroscopy on (02/24/16) and this revealed an active spurting vessel in the second portion of the duodenum and this was treated with epinephrine and 2 clips. 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 He then developed rebleeding on 03/01/16 and then went to OR for an exploratory laparotomy, Edel pyloroplasty with selective vagotomy, and J tube placement. - He was tx back to [facility] on 03/14/16 on tube feeding and with severe anemia. - Pt was given 2 units of blood (03/14/16) for hgb 6. Also his midline abdomen wound was dehiscing. - Pt with more pulmonary congestion. No aspiration on official evaluation, also has poor cough/inspiratory effort and CHF. - His Hgb trended down to 7.5 on 03/21/16 and was transfused with 2 units of PRBCs on 03/21/16 with improvement in Hgb to 9.3. No evidence of any active bleeding. - Cont. local wound care and no need for wound vac over abdomen wound. Gen Surgery following - Trying to wean off tube feeding, but not eating much today. Encourage oral intake. TF @ 20mL/hr for now. . - Pts IV Lasix was d/c on 03/21 and converted back to po Lasix 40mg BID on - Pt following and encouraged the pt to get OOB to chair. - Cont. incentive spirometer/acapella. - Cont. nebs/mucolytic - Anticipate d/c to SNF at the end of this hospitalization. (2) Anemia, blood loss Status: Acute Plan: - See above (3) Cardiomyopathy Status: Chronic Plan: - Cont his current medication. - see above (4) Diabetes Status: Chronic Plan: - SSI (5) CAD (coronary artery disease) Status: Chronic Plan: - CABG 12/2015 - ASA, Plavix, Coreg, Imdur, Pravachol (6) Hypertension Status: Chronic Plan: - Stable - Coreg Assessment and Plan Patient examined. Assessment and plan formulated with Addie Dixon PA-C. I agree with the above. Problem Qualifiers (1) Cardiomyopathy: Qualified Code: I42.9 - Cardiomyopathy, unspecified type (2) Diabetes: Qualified Code: E11.8 - Type 2 diabetes mellitus with complication, with long- term current use of insulin (3) CAD (coronary artery disease): Qualified Code: I25.10 - Coronary artery disease involving [place] heart without angina pectoris, unspecified vessel or lesion type (4) Hypertension: Qualified Code: I10 - Essential hypertension Addie Dixon Mar 22, 2016 16:20 Ren Brown DO Mar 23, 2016 15:41
[2016-03-22] MEDS: ESCITALOPRAM OXALATE 10 MG TAB PO SCH (17:22)
[2016-03-22] MEDS: FUROSEMIDE 40 MG TAB PO SCH (17:23)
[2016-03-22] MEDS: PRAVASTATIN SOD 10 MG TAB PO SCH (20:47)
[2016-03-22] MEDS: PRAVASTATIN SOD 20 MG TAB PO SCH (20:47)
[2016-03-23] VITALS (7 sets, daily range): BP systolic 103–113; BP diastolic 54–69; PULSE 60–71; RESP 16–20; TEMP 95.9–98; O2SAT 93–99
[2016-03-23] MEDS: INSULIN ASPART SUPPLEMENTAL SCALE SQ SCH ×4 (05:58→22:07)
[2016-03-23] MEDS: ISOSORBIDE MONONITRATE 30 MG TAB PO SCH (06:00)
[2016-03-23 08:04] LABS: AUTOMATED NEUTROPHIL # 19.4 TH/MM3 (1.8-7.7); BASOPHIL # 0.1 TH/MM3 (0-0.2); BASOPHIL % 0.2 % (0.0-2.0); EOSINOPHIL # 0.2 TH/MM3 (0-0.4); EOSINOPHIL % 1.2 % (0.0-4.0); HEMO FLAGS DIFF FINAL; LYMPH % 2.9 % (9.0-44.0); LYMPHOCYTE # 0.6 TH/MM3 (1.0-4.8); MEAN CELL VOLUME 84.5 FL (80.0-100.0); MEAN CORPUSCULAR HEMOGLOBIN 27.5 PG (27.0-34.0); MEAN CORPUSCULAR HGB CONC 32.6 % (32.0-36.0); MONO % 4.1 % (0.0-8.0); NEUT % 91.6 % (16.0-70.0); PLATELET COUNT 352 TH/MM3 (150-450); RED CELL DISTRIBUTION WIDTH 17.6 % (11.6-17.2); WHITE BLOOD COUNT 21.2 TH/MM3 (4.0-11.0)
[2016-03-23 08:27] LABS: BICARBONATE 36.2 MEQ/L (21.0-32.0); MAGNESIUM 2.1 MG/DL (1.5-2.5); POTASSIUM 4.4 MEQ/L (3.5-5.1)
[2016-03-23] MEDS: NUTRITIONAL SUPPLEMENTS PO SCH ×3 (09:00→18:00)
[2016-03-23] MEDS: SODIUM CHLORIDE 0.9% FLUSH 5 ML FLUSH FLUSH SCH ×2 (09:00→22:12)
[2016-03-23] MEDS: ESCITALOPRAM OXALATE 10 MG TAB PO SCH (09:16)
[2016-03-23] MEDS: GABAPENTIN 300 MG CAP PO SCH ×2 (09:16→22:07)
[2016-03-23] MEDS: PANTOPRAZOLE SOD 40 MG DELAYED RELEASE TAB PO SCH ×2 (09:16→22:07)
[2016-03-23] MEDS: CLOPIDOGREL 75 MG TAB PO SCH (09:16)
[2016-03-23] MEDS: FUROSEMIDE 40 MG TAB PO SCH ×2 (09:16→18:20)
[2016-03-23] MEDS: CARVEDILOL 3.125 MG TAB PO SCH ×2 (09:16→22:06)
[2016-03-23] MEDS: ASPIRIN EC 81 MG TABEC PO SCH (09:16)
[2016-03-23] MEDS: MULTIVITAMIN TAB PO SCH (09:16)
[2016-03-23] MEDS: PRAZOSIN HCL 1 MG CAP PO SCH ×2 (09:16→22:06)
[2016-03-23] MEDS: RESP: ALBUTEROL 2.5 MG/IPRATROPIUM 0.5 MG NEB (SCH) NEB (09:53)
[2016-03-23 12:55] LABS: FREE T4 1.17 NG/DL (0.76-1.46)
--- NOTE | 2016-03-23 13:57 | MH ---
cc: MARYLIN TILLMAN M.D. DATE OF ADMISSION: 03/13/2016 DATE OF CONSULTATION 03/23/2016 HISTORY: This is 60-year-old white male with a very complex and complicated medical history was admitted as a transfer from [facility]. Psychiatric consultation is requested by Dr. Brown for evaluation assistance in the management of "depression." In reviewing his records it was learned that he has a history of duodenal ulcer, diverticulosis, chronic kidney disease, diabetes, peripheral vascular disease, congestive heart failure, hyperlipidemia, hypertension. He was recently admitted at [facility] on 01/2016 for sepsis secondary to multi lobar pneumonia and left lower extremity cellulitis. He developed GI bleeding on 02/05/2016 with acute anemia. He was initially admitted to [facility] on 02/17/2016 for control of GI bleeding and was transferred to [facility] from where he was transferred to [facility] for further management. His medical history is well-documented and was reviewed. LABORATORY FINDINGS CBC with differential was done on different dates. His white count has been elevated lately, i.e. 21. His hemoglobin has been running low at 8.8 on 03/23/2016. Hematocrit 27. A BUN was slightly elevated 22. Serum creatinine unremarkable. Chest x-ray done on different dates, the one on 03/19 showed cardiomegaly and mild interstitial edema. MEDICATIONS current medications of 1. Lasix 2. Lexapro 10 mg daily 3. Albuterol inhaler 4. Multivitamin 5. Pravachol 6. Coreg 7. Neurontin 8. Ecotrin 9. Plavix 10. Imdur 11. Percocet 12. Minipress 13. Roxicodone 14. Nystatin cream 15. Dulcolax 16. Vasotec 17. Clonidine p.r.n. 18. Sulfa Prior to evaluation case was discussed with the nursing staff on the unit who indicated that he has been "depressed looking" and not very active in his treatment. He has not exhibited any aggressive self-destructive behavior nor has he made any threats of harm to self or others. At the time of this evaluation Mr. Celaya was pleasant and cooperative. When asked about his understanding of the reason for this hospitalization he responded "I had a quadruple bypass December of last year. Actually I moved here from [place] in October 2014. Since then I have been living with my brother in [place]. I have been in and out of various hospitals because of all kinds of medical problems. I had wound on my foot which was not healing so they put me in hyperbaric chamber." He went on to describe multitude of medical issues that he had to deal with since he moved down here. He acknowledged over the past 4 months he has been feeling "sad and depressed." He attributed this to a multitude of medical issues as well as the of his dog and cat. In addition, he has not been gainfully employed for almost 2 years. 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 He stated over the past 6 months he has been experiencing initial and middle insomnia. He denied experiencing any nightmares. He mentioned his appetite has declined that he had lost "about 10 to 15 pounds." He denied any changes memory or concentration. However, he indicated that he has been "extremely weak and cannot stand without support or "I will fall down." He denied entertaining any suicidal thoughts or any previous suicide attempts "I am not one who gives up." On further questioning he did not give any history suggestive bipolar affective disorder. PAST PSYCHIATRIC HISTORY Denied any previous psychiatric intervention. PAST MEDICAL HISTORY As mentioned above, i.e., 1. Hypertension 2. Diabetes 3. coronary artery disease 4. status post coronary artery bypass graft December 2015 performed at this hospital 5. duodenal ulcers 6. GI bleeding 7. chronic kidney disease 8. peripheral vascular disease 9. congestive heart failure with ejection fraction of 20%. 10. Hyperlipidemia 11. sick sinus syndrome 12. status post pacemaker 13. peripheral neuropathy 14. Lymphangitis lower extremity. 15. status post exploratory laparotomy 16. Pyloroplasty with high selective vagotomy 17. J-tube placement 18. surgery on right heel. ALLERGIES He denied any drug allergies. FAMILY HISTORY His parents when he was 7-year-old and he was raised by his maternal grandparents. His brother also lived with the grandparents. Both of his parents are . He denied any family history of psychiatric illness or substance abuse. PERSONAL AND SOCIAL HISTORY He grew up in [place] and after finishing high school attended college and obtained a master's degree in general education. 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 In addition he worked as a part-time salad bar clerk. He has never been and has no children. He denied any alcohol or drug abuse except what he described as "drank heavily in the college, like all college students at the college." He denied any history of physical or sexual abuse. He denied any history of involvement with the law. CLINICAL OBSERVATION/MENTAL STATUS EXAM At the time of this evaluation he presented as a reasonably well-groomed white male who looked his stated age. He was overall pleasant and cooperative with this interviewer and volunteered information spontaneously. No overt anger or hostility was noticed. Psychomotor retardation was noticeable. His speech was soft and monotonous. His affect was blunted appropriate. Subjectively described his mood as "I have been feeling sad and depressed." Thought processes did not reveal any looseness of associations or flight of ideas. No nilam delusions, auditory or visual hallucinations were noticed or reported. He denied active suicidal or homicidal ideations or intent at this time. He denied any previous suicide attempts. Cognitive functions he was alert, oriented to place, person and situation. Memory immediate he could do 5 days for 4 days backward. Recent he could recall 2/3 objects after 10 minutes. Remote he could recall presidents up to President Jovel Senior. Attention and concentration was good. He could do serial sevens up to 44. His judgment and insight was felt to be good. DIAGNOSTIC IMPRESSION Major depressive disorder, moderate single episode. RECOMMENDATIONS Based on this evaluation the background information available to me at this time Mr. Celaya is experiencing moderate degree of depression as manifested by persistent feeling of sadness, neurovegetative symptoms. His depression is compounded by multiple psychosocial factors i.e. medical issues, of parents, move to new geographical area, financial difficulties, etc. To alleviate his depression. He needs to be on antidepressant. I concur with your choice of Lexapro. The risks, benefits and alternatives of this were explained to him and he understood. Above-mentioned issues need to be further addressed in individual psychotherapy sessions. He was encouraged to seek outpatient follow up in [facility] and he was supportive. For the sake of completeness we need to check his thyroid profile. I have taken the liberty of ordering this. Thank you Dr. Brown for allowing me to participate in the care of Mr. Celaya. I will follow him with you during this admission. MD MAYO Day/margaret /11:49 AM /12:28 PM
--- NOTE | 2016-03-23 15:46 | HHI.PR ---
Subjective Remarks c/o frequent loose stools today. Pt was able to tolerate some meatloaf for lunch. Pt denies abdominal pain. no n/v. Objective Vitals Vital Signs Date Time Temp Pulse Resp B/P Pulse Ox O2 Delivery O2 Flow Rate FiO2 03/23/16 11:20 66 03/23/16 09:54 99 Nasal Cannula 1.00 03/23/16 08:00 97.3 66 16 103/54 99 03/23/16 04:00 95.9 66 18 113/59 97 03/23/16 00:00 98.0 70 18 104/58 96 03/22/16 21:14 101.0 84 18 119/64 93 03/22/16 21:00 81 03/22/16 16:21 92 Nasal Cannula 2.00 03/22/16 16:00 97.1 57 18 123/87 97 03/22/16 03/22/16 03/23/16 15:00 23:00 07:00 Intake Total 240 ml Output Total 600 ml 325 ml 250 ml Balance -600 ml -325 ml -10 ml Tube Feeding 240 ml Output Urine Total 600 ml 325 ml 250 ml # Bowel Movements 1 Result Diagram: 03/23/16 0707 03/23/16 0707 Imaging Last Impressions Chest X-Ray 03/19/16 0000 Signed Impressions: Service Date/Time: Saturday, March 19, 2016 12:08 - CONCLUSION: Stable chest , cardiomegaly and mild interstitial edema. Oscar Mcmanus MD FACR Last Impressions Chest X-Ray 03/15/16 0800 Signed Impressions: Service Date/Time: Tuesday, March 15, 2016 07:55 - CONCLUSION: Small to moderate bilateral effusions with central pulmonary congestion and basilar airspace disease. Findings are characteristic of congestive heart failure. Stable pacemaker. Rich Baldwin MD Last Impressions Chest X-Ray 03/13/16 2141 Signed Impressions: Service Date/Time: Sunday, March 13, 2016 22:02 - CONCLUSION: Pulmonary vascular congestion, CHF with right pleural effusion Burt Sears MD Objective Remarks General: NAD, AAOx3 Chest: Upper airway congestion Cardiac: Regular Abd: +BS, soft, J-tube in place. midline incision with 2 areas of dehiscence currently packed Ext: No edema A/P Problem List: (1) Leukocytosis Status: Acute Plan: - suspect Cdif - obtain stool studies including cdif tox - obtain UA/Cx - obtain CXR - obtain sputum studies, re: cough - start PO Flagyl (2) H/O pyloroplasty Status: Acute Plan: - Pt with previous CABG in December then presented to [place] in February with cellulitis and PNA - Pt developed GIB and duodenal ulcer noted and was sent to [place] for persistent bleeding of unclear etiology. - Pt received a total 28 units blood but continued to have bleeding and was then taken to [facility] on 02/24/16. Pt underwent small bowel enteroscopy on (02/24/16) and this revealed an active spurting vessel in the second portion of the duodenum and this was treated with epinephrine and 2 clips. 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 He then developed rebleeding on 03/01/16 and then went to OR for an exploratory laparotomy, Edel pyloroplasty with selective vagotomy, and J tube placement. - He was tx back to [facility] on 03/14/16 on tube feeding and with severe anemia. - Pt was given 2 units of blood (03/14/16) for hgb 6. Also his midline abdomen wound was dehiscing. - Pt with more pulmonary congestion. No aspiration on official evaluation, also has poor cough/inspiratory effort and CHF. - His Hgb trended down to 7.5 on 03/21/16 and was transfused with 2 units of PRBCs on 03/21/16 with improvement in Hgb to 9.3. No evidence of any active bleeding. - Cont. local wound care and no need for wound vac over abdomen wound. Gen Surgery following - Trying to wean off tube feeding, but not eating much today. Encourage oral intake. TF @ 20mL/hr for now. . - Pts IV Lasix was d/c on 03/21 and converted back to po Lasix 40mg BID on - Pt following and encouraged the pt to get OOB to chair. - Cont. incentive spirometer/acapella. - Cont. nebs/mucolytic - Anticipate d/c to SNF at the end of this hospitalization. (3) Anemia, blood loss Status: Acute Plan: - See above (4) Cardiomyopathy Status: Chronic Plan: - Cont his current medication. - see above (5) Diabetes Status: Chronic Plan: - SSI (6) CAD (coronary artery disease) Status: Chronic Plan: - CABG 12/2015 - ASA, Plavix, Coreg, Imdur, Pravachol (7) Hypertension Status: Chronic Plan: - Stable - Coreg Problem Qualifiers (1) Cardiomyopathy: Qualified Code: I42.9 - Cardiomyopathy, unspecified type (2) Diabetes: Qualified Code: E11.8 - Type 2 diabetes mellitus with complication, with long- term current use of insulin (3) CAD (coronary artery disease): Qualified Code: I25.10 - Coronary artery disease involving [place] heart without angina pectoris, unspecified vessel or lesion type (4) Hypertension: Qualified Code: I10 - Essential hypertension Ren Brown DO Mar 23, 2016 15:46
--- NOTE | 2016-03-23 17:13 | RADRPT ---
EXAM DATE/TIME: 03/23/2016 16:57 [place] COMPARISON: CHEST PA & LAT, March 15, 2016, 7:55. INDICATIONS : Cough. MEDICAL HISTORY : Cardiovascular disease. SURGICAL HISTORY : CABG. Pacemaker. ENCOUNTER: Initial ACUITY: 4 - 6 days PAIN SCORE: 0/10 LOCATION: Bilateral chest FINDINGS: The patient is status post sternotomy. There is a bilead pacemaker in place from the l eft subclavian approach. The cardiac silhouette appears enlarged. There is diffuse mixed interstitia l and alveolar consolidation seen throughout. The consolidations are most prominent in the perihilar regions especially on the left. There are bilateral pleural effusions. CONCLUSION: Cardiomegaly, diffuse pulmonary consolidation and bilateral effusions likely represen ting CHF. Tonny Metzger MD on March 23, 2016 at 17:07 Board Certified Radiologist. This report was verified electronically.
[2016-03-23] MEDS: metroNIDAZOLE 500 MG TAB PO SCH (18:20)
[2016-03-23] MEDS: PRAVASTATIN SOD 20 MG TAB PO SCH (22:06)
[2016-03-23] MEDS: PRAVASTATIN SOD 10 MG TAB PO SCH (22:06)
[2016-03-24] VITALS (10 sets, daily range): BP systolic 102–143; BP diastolic 60–76; PULSE 66–78; RESP 15–18; TEMP 96.8–98.4; O2SAT 91–97
[2016-03-24] MEDS: metroNIDAZOLE 500 MG TAB PO SCH ×3 (00:13→17:44)
[2016-03-24] MEDS: LEVOTHYROXINE SODIUM 25 MCG TAB PO SCH (05:43)
[2016-03-24] MEDS: ISOSORBIDE MONONITRATE 30 MG TAB PO SCH (06:14)
[2016-03-24] MEDS: INSULIN ASPART SUPPLEMENTAL SCALE SQ SCH ×4 (06:14→21:59)
[2016-03-24 07:30] LABS: AUTOMATED NEUTROPHIL # 12.3 TH/MM3 (1.8-7.7); BASOPHIL % 0.2 % (0.0-2.0); EOSINOPHIL # 0.3 TH/MM3 (0-0.4); EOSINOPHIL % 2.1 % (0.0-4.0); HEMATOCRIT 27.7 % (39.0-51.0); HEMO FLAGS DIFF FINAL; LYMPH % 3.9 % (9.0-44.0); LYMPHOCYTE # 0.5 TH/MM3 (1.0-4.8); MEAN CELL VOLUME 85.3 FL (80.0-100.0); MEAN CORPUSCULAR HEMOGLOBIN 27.7 PG (27.0-34.0); MEAN CORPUSCULAR HGB CONC 32.4 % (32.0-36.0); MONO % 5.4 % (0.0-8.0); NEUT % 88.4 % (16.0-70.0); PLATELET COUNT 353 TH/MM3 (150-450); RED BLOOD COUNT 3.25 MIL/MM3 (4.50-5.90); WHITE BLOOD COUNT 13.9 TH/MM3 (4.0-11.0)
[2016-03-24 07:54] LABS: BICARBONATE 36.4 MEQ/L (21.0-32.0); MAGNESIUM 2.3 MG/DL (1.5-2.5); POTASSIUM 4.4 MEQ/L (3.5-5.1)
[2016-03-24] MEDS: NUTRITIONAL SUPPLEMENTS PO SCH ×3 (09:00→17:44)
[2016-03-24] MEDS: PRAZOSIN HCL 1 MG CAP PO SCH ×2 (09:04→22:00)
[2016-03-24] MEDS: FUROSEMIDE 40 MG TAB PO SCH ×2 (09:05→17:44)
[2016-03-24] MEDS: PANTOPRAZOLE SOD 40 MG DELAYED RELEASE TAB PO SCH ×2 (09:05→22:00)
[2016-03-24] MEDS: MULTIVITAMIN TAB PO SCH (09:05)
[2016-03-24] MEDS: GABAPENTIN 300 MG CAP PO SCH ×2 (09:05→21:59)
[2016-03-24] MEDS: CARVEDILOL 3.125 MG TAB PO SCH ×2 (09:05→22:00)
[2016-03-24] MEDS: ASPIRIN EC 81 MG TABEC PO SCH (09:05)
[2016-03-24] MEDS: CLOPIDOGREL 75 MG TAB PO SCH (09:05)
[2016-03-24] MEDS: ESCITALOPRAM OXALATE 10 MG TAB PO SCH (09:06)
[2016-03-24] MEDS: SODIUM CHLORIDE 0.9% FLUSH 5 ML FLUSH FLUSH SCH ×2 (09:06→22:00)
[2016-03-24 14:38] LABS: C. DIFF EPI 027 PRESUMPTIVE NEGATIVE (NEGATIVE); C. DIFF TOXIN PCR NEGATIVE (NEGATIVE)
--- NOTE | 2016-03-24 15:03 | HHI.PR ---
Subjective Remarks No new complaints. Objective Vitals Vital Signs Date Time Temp Pulse Resp B/P Pulse Ox O2 Delivery O2 Flow Rate FiO2 03/24/16 12:00 97.4 74 15 102/61 91 03/24/16 08:00 98.4 76 16 113/65 96 03/24/16 04:00 97.9 66 16 110/65 97 03/24/16 00:00 96.8 66 18 110/60 92 03/23/16 20:00 71 03/23/16 20:00 96.7 60 20 103/62 93 03/23/16 03/23/16 03/24/16 15:00 23:00 07:00 Intake Total 1040 ml 912 ml Output Total 1000 ml 950 ml Balance 40 ml -38 ml Intake Oral 1040 ml 480 ml Tube Feeding 382 ml Other 50 ml Output Urine Total 1000 ml 950 ml # Bowel Movements 3 Result Diagram: 03/24/16 0651 03/24/16 0651 Imaging Last Impressions Chest X-Ray 03/19/16 0000 Signed Impressions: Service Date/Time: Saturday, March 19, 2016 12:08 - CONCLUSION: Stable chest , cardiomegaly and mild interstitial edema. Oscar Mcmanus MD FACR Last Impressions Chest X-Ray 03/15/16 0800 Signed Impressions: Service Date/Time: Tuesday, March 15, 2016 07:55 - CONCLUSION: Small to moderate bilateral effusions with central pulmonary congestion and basilar airspace disease. Findings are characteristic of congestive heart failure. Stable pacemaker. Rich Baldwin MD Last Impressions Chest X-Ray 03/13/16 2141 Signed Impressions: Service Date/Time: Sunday, March 13, 2016 22:02 - CONCLUSION: Pulmonary vascular congestion, CHF with right pleural effusion Burt Sears MD Objective Remarks General: NAD, AAOx3 Chest: Upper airway congestion Cardiac: Regular Abd: +BS, soft, J-tube in place. midline incision with 2 areas of dehiscence currently packed Ext: No edema A/P Problem List: (1) Leukocytosis Status: Acute Plan: - leukocytosis is improving - Pt with only one episode of diarrhea - C. Dif negative, other stool studies are pending - obtain UA/Cx --> pending - CXR (03/24/16) --> b/l effusions c/w CHF - obtain sputum studies, re: cough --> pending - start PO Flagyl (started 03/23/16), continue for now (2) H/O pyloroplasty Status: Acute Plan: - Pt with previous CABG in December then presented to [place] in February with cellulitis and PNA - Pt developed GIB and duodenal ulcer noted and was sent to [place] for persistent bleeding of unclear etiology. - Pt received a total 28 units blood but continued to have bleeding and was then taken to [facility] on 02/24/16. Pt underwent small bowel enteroscopy on (02/24/16) and this revealed an active spurting vessel in the second portion of the duodenum and this was treated with epinephrine and 2 clips. 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 He then developed rebleeding on 03/01/16 and then went to OR for an exploratory laparotomy, Edel pyloroplasty with selective vagotomy, and J tube placement. - He was tx back to [facility] on 03/14/16 on tube feeding and with severe anemia. - Pt was given 2 units of blood (03/14/16) for hgb 6. Also his midline abdomen wound was dehiscing. - Pt with more pulmonary congestion. No aspiration on official evaluation, also has poor cough/inspiratory effort and CHF. - His Hgb trended down to 7.5 on 03/21/16 and was transfused with 2 units of PRBCs on 03/21/16 with improvement in Hgb to 9.3. No evidence of any active bleeding. - Cont. local wound care and no need for wound vac over abdomen wound. Gen Surgery following - Trying to wean off tube feeding, but not eating much today. Encourage oral intake. TF @ 20mL/hr for now. . - Pts IV Lasix was d/c on 03/21 and converted back to po Lasix 40mg BID on - Pt following and encouraged the pt to get OOB to chair. - Cont. incentive spirometer/acapella. - Cont. nebs/mucolytic - Anticipate d/c to SNF at the end of this hospitalization. (3) Anemia, blood loss Status: Acute Plan: - See above (4) Cardiomyopathy Status: Chronic Plan: - worsening CXR - IV lasix - repeat CXR in AM (5) Diabetes Status: Chronic Plan: - SSI (6) CAD (coronary artery disease) Status: Chronic Plan: - CABG 12/2015 - ASA, Plavix, Coreg, Imdur, Pravachol (7) Hypertension Status: Chronic Plan: - Stable - Coreg Problem Qualifiers (1) Cardiomyopathy: Qualified Code: I42.9 - Cardiomyopathy, unspecified type (2) Diabetes: Qualified Code: E11.8 - Type 2 diabetes mellitus with complication, with long- term current use of insulin (3) CAD (coronary artery disease): Qualified Code: I25.10 - Coronary artery disease involving [place] heart without angina pectoris, unspecified vessel or lesion type (4) Hypertension: Qualified Code: I10 - Essential hypertension Ren Brown DO Mar 24, 2016 15:03 Qualified Code: I10 - Essential hypertension Ren Brown DO Mar 24, 2016 15:03
[2016-03-24] MEDS ORDERED: FUROSEMIDE 40 MG/4 ML VIAL IV PUSH ONE (15:15)
[2016-03-24 16:40] LABS: BACTERIA, URINE RARE /hpf; BLOOD, URINE LARGE (NEG); COMMENT (UR) CULTURE INDICATED; CULTURE IF INDICATED CULTURE INDICATED; GLUCOSE,URINE NEG (NEG); KETONE, URINE 10 mg/dL (NEG); MUCUS URINE FEW /lpf (OCC); SQUAMOUS EPITHELIAL CELL URINE <1 /hpf (0-5); URINE COLOR YELLOW (YELLW/STRAW)
[2016-03-24 16:48] LABS: NITRITE,URINE POS (NEG)
[2016-03-24] MEDS: PRAVASTATIN SOD 10 MG TAB PO SCH (22:00)
[2016-03-24] MEDS: PRAVASTATIN SOD 20 MG TAB PO SCH (22:00)
[2016-03-25] VITALS (10 sets, daily range): BP systolic 114–122; BP diastolic 60–71; PULSE 63–71; RESP 16–20; TEMP 95.7–98.5; O2SAT 94–99
[2016-03-25] MEDS: metroNIDAZOLE 500 MG TAB PO SCH ×4 (00:39→23:18)
[2016-03-25] MEDS: ISOSORBIDE MONONITRATE 30 MG TAB PO SCH (05:56)
[2016-03-25] MEDS: LEVOTHYROXINE SODIUM 25 MCG TAB PO SCH (05:56)
[2016-03-25] MEDS: INSULIN ASPART SUPPLEMENTAL SCALE SQ SCH ×4 (05:57→21:49)
[2016-03-25 07:10] LABS: AUTOMATED NEUTROPHIL # 9.8 TH/MM3 (1.8-7.7); BASOPHIL % 0.4 % (0.0-2.0); EOSINOPHIL # 0.2 TH/MM3 (0-0.4); EOSINOPHIL % 1.8 % (0.0-4.0); HEMATOCRIT 27.7 % (39.0-51.0); HEMO FLAGS DIFF FINAL; LYMPHOCYTE # 0.7 TH/MM3 (1.0-4.8); MEAN CORPUSCULAR HEMOGLOBIN 27.1 PG (27.0-34.0); MEAN CORPUSCULAR HGB CONC 32.3 % (32.0-36.0); MONO % 6.4 % (0.0-8.0); NEUT % 85.4 % (16.0-70.0); PLATELET COUNT 370 TH/MM3 (150-450); RED CELL DISTRIBUTION WIDTH 17.2 % (11.6-17.2); WHITE BLOOD COUNT 11.5 TH/MM3 (4.0-11.0)
[2016-03-25 07:37] LABS: MAGNESIUM 2.2 MG/DL (1.5-2.5); POTASSIUM 4.3 MEQ/L (3.5-5.1)
[2016-03-25] MEDS: PANTOPRAZOLE SOD 40 MG DELAYED RELEASE TAB PO SCH ×2 (08:26→21:48)
[2016-03-25] MEDS: GABAPENTIN 300 MG CAP PO SCH ×2 (08:27→21:48)
[2016-03-25] MEDS: ESCITALOPRAM OXALATE 10 MG TAB PO SCH (08:27)
[2016-03-25] MEDS: CARVEDILOL 3.125 MG TAB PO SCH ×2 (08:27→21:48)
[2016-03-25] MEDS: CLOPIDOGREL 75 MG TAB PO SCH (08:27)
[2016-03-25] MEDS: MULTIVITAMIN TAB PO SCH (08:27)
[2016-03-25] MEDS: PRAZOSIN HCL 1 MG CAP PO SCH ×2 (08:27→21:48)
[2016-03-25] MEDS: FUROSEMIDE 40 MG TAB PO SCH ×2 (08:28→17:47)
[2016-03-25] MEDS: ASPIRIN EC 81 MG TABEC PO SCH (08:28)
[2016-03-25] MEDS: NUTRITIONAL SUPPLEMENTS PO SCH ×3 (08:28→17:46)
[2016-03-25] MEDS: SODIUM CHLORIDE 0.9% FLUSH 5 ML FLUSH FLUSH SCH ×2 (08:28→21:48)
--- NOTE | 2016-03-25 09:43 | RADRPT ---
EXAM DATE/TIME: 03/25/2016 09:18 [place] COMPARISON: CHEST PA & LAT, March 23, 2016, 16:57. INDICATIONS : Short of breath. Followup pulmonary opacities. MEDICAL HISTORY : Cardiovascular disease. SURGICAL HISTORY : CABG. Pacemaker. ENCOUNTER: Initial ACUITY: 1 day PAIN SCORE: 0/10 LOCATION: Bilateral chest FINDINGS: AP and lateral views of the chest were obtained and again demonstrate the patient status post median sternotomy for bypass grafting procedure. The study remains Midinspiratory with bilateral alveolar op acities greatest in the perihilar regions and lung bases. The costophrenic angles are blunted consist ent with bilateral effusions. The left subclavian AV sequential transvenous pacer remains in place. B [place] thorax is intact. CONCLUSION: No significant change. The findings remain most characteristic of congestive heart fa ilure. Shawn Motley MD on March 25, 2016 at 9:39 Board Certified Radiologist. This report was verified electronically.
--- NOTE | 2016-03-25 16:40 | HHI.PR ---
Subjective Remarks No new complaints. Objective Vitals Vital Signs Date Time Temp Pulse Resp B/P Pulse Ox O2 Delivery O2 Flow Rate FiO2 03/25/16 12:30 97.5 66 18 120/63 94 03/25/16 09:27 95 Nasal Cannula 2.00 03/25/16 08:25 98.5 68 20 116/67 96 03/25/16 04:00 97.3 66 16 114/60 98 03/25/16 01:13 97.9 71 18 120/67 96 03/24/16 22:11 78 129/76 03/24/16 20:28 96.9 78 16 96 03/24/16 18:20 95 Nasal Cannula 2.00 03/24/16 18:09 73 03/24/16 03/24/16 03/25/16 15:00 23:00 07:00 Intake Total 160 ml 400 ml 160 ml Output Total 1200 ml 350 ml Balance -1040 ml 50 ml 160 ml Intake Oral 100 ml Tube Feeding 400 ml 160 ml Other 60 ml Output Urine Total 1200 ml 350 ml # Bowel Movements 1 2 Result Diagram: 03/25/16 0630 03/25/16 0630 Imaging Last Impressions Chest X-Ray 03/19/16 0000 Signed Impressions: Service Date/Time: Saturday, March 19, 2016 12:08 - CONCLUSION: Stable chest , cardiomegaly and mild interstitial edema. Oscar Mcmanus MD FACR Last Impressions Chest X-Ray 03/15/16 0800 Signed Impressions: Service Date/Time: Tuesday, March 15, 2016 07:55 - CONCLUSION: Small to moderate bilateral effusions with central pulmonary congestion and basilar airspace disease. Findings are characteristic of congestive heart failure. Stable pacemaker. Rich Baldwin MD Last Impressions Chest X-Ray 03/13/16 2141 Signed Impressions: Service Date/Time: Sunday, March 13, 2016 22:02 - CONCLUSION: Pulmonary vascular congestion, CHF with right pleural effusion Burt Sears MD Objective Remarks General: NAD, AAOx3 Chest: Upper airway congestion Cardiac: Regular Abd: +BS, soft, J-tube in place. midline incision with 2 areas of dehiscence currently packed Ext: No edema A/P Problem List: (1) UTI (urinary tract infection) Status: Acute Plan: - leukocytosis is improving - C. Dif negative, other stool studies negative - Urine Cx (03/24/16) --> gram negative jayden - start levaquin 03/25/16 - obtain UA/Cx --> pending - CXR (03/24/16) --> b/l effusions c/w CHF - PO Flagyl (started 03/23/16), continue for now - anticipate discharge to SNF 03/25/16 (2) H/O pyloroplasty Status: Acute Plan: - Pt with previous CABG in December then presented to [place] in February with cellulitis and PNA - Pt developed GIB and duodenal ulcer noted and was sent to [place] for persistent bleeding of unclear etiology. - Pt received a total 28 units blood but continued to have bleeding and was then taken to [facility] on 02/24/16. Pt underwent small bowel enteroscopy on (02/24/16) and this revealed an active spurting vessel in the second portion of the duodenum and this was treated with epinephrine and 2 clips. 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 He then developed rebleeding on 03/01/16 and then went to OR for an exploratory laparotomy, [place] pyloroplasty with selective vagotomy, and J tube placement. - He was tx back to [facility] [place] 03/14/16 on tube feeding and with severe anemia. - Pt was given 2 units of blood (03/14/16) for hgb 6. Also his midline abdomen wound was dehiscing. - Pt with more pulmonary congestion. No aspiration on official evaluation, also has poor cough/inspiratory effort and CHF. - His Hgb trended down to 7.5 on 03/21/16 and was transfused with 2 units of PRBCs on 03/21/16 with improvement in Hgb to 9.3. No evidence of any active bleeding. - Cont. local wound care and no need for wound vac over abdomen wound. Gen Surgery following - Trying to wean off tube feeding, but not eating much today. Encourage oral intake. TF @ 20mL/hr for now. . - Pts IV Lasix was d/c on 03/21 and converted back to po Lasix 40mg BID on - Pt following and encouraged the pt to get OOB to chair. - Cont. incentive spirometer/acapella. - Cont. nebs/mucolytic - Anticipate d/c to SNF at the end of this hospitalization. (3) Anemia, blood loss Status: Acute Plan: - See above (4) Cardiomyopathy Status: Chronic Plan: - worsening CXR - IV lasix - repeat CXR in AM (5) Diabetes Status: Chronic Plan: - SSI (6) CAD (coronary artery disease) Status: Chronic Plan: - CABG 12/2015 - ASA, Plavix, Coreg, Imdur, Pravachol (7) Hypertension Status: Chronic Plan: - Stable - Coreg Problem Qualifiers (1) Cardiomyopathy: Qualified Code: I42.9 - Cardiomyopathy, unspecified type (2) Diabetes: Qualified Code: E11.8 - Type 2 diabetes mellitus with complication, with long- term current use of insulin (3) CAD (coronary artery disease): Qualified Code: I25.10 - Coronary artery disease involving [place] heart without angina pectoris, unspecified vessel or lesion type (4) Hypertension: Qualified Code: I10 - Essential hypertension Ren Brown DO Mar 25, 2016 16:40
[2016-03-25] MEDS: LEVOFLOXACIN 500 MG TAB PO SCH (17:46)
[2016-03-25] MEDS: PRAVASTATIN SOD 20 MG TAB PO SCH (21:48)
[2016-03-25] MEDS: PRAVASTATIN SOD 10 MG TAB PO SCH (21:48)
[2016-03-26] VITALS (10 sets, daily range): BP systolic 113–159; BP diastolic 68–92; PULSE 59–84; RESP 18–20; TEMP 96.5–99.3; O2SAT 84–99
[2016-03-26] MEDS: ISOSORBIDE MONONITRATE 30 MG TAB PO SCH (05:54)
[2016-03-26] MEDS: LEVOTHYROXINE SODIUM 25 MCG TAB PO SCH (05:54)
[2016-03-26] MEDS: INSULIN ASPART SUPPLEMENTAL SCALE SQ SCH ×4 (05:55→21:28)
[2016-03-26] MEDS: CLOPIDOGREL 75 MG TAB PO SCH (08:48)
[2016-03-26] MEDS: metroNIDAZOLE 500 MG TAB PO SCH ×2 (08:48→17:18)
[2016-03-26] MEDS: GABAPENTIN 300 MG CAP PO SCH ×2 (08:48→21:27)
[2016-03-26] MEDS: ASPIRIN EC 81 MG TABEC PO SCH (08:48)
[2016-03-26] MEDS: PANTOPRAZOLE SOD 40 MG DELAYED RELEASE TAB PO SCH ×2 (08:48→21:27)
[2016-03-26] MEDS: PRAZOSIN HCL 1 MG CAP PO SCH ×2 (08:48→21:27)
[2016-03-26] MEDS: MULTIVITAMIN TAB PO SCH (08:48)
[2016-03-26] MEDS: SODIUM CHLORIDE 0.9% FLUSH 5 ML FLUSH FLUSH SCH ×2 (08:49→21:28)
[2016-03-26] MEDS: NUTRITIONAL SUPPLEMENTS PO SCH ×3 (08:49→17:18)
[2016-03-26] MEDS: CARVEDILOL 3.125 MG TAB PO SCH ×2 (08:49→21:27)
[2016-03-26] MEDS: FUROSEMIDE 40 MG TAB PO SCH ×2 (08:49→17:18)
[2016-03-26] MEDS: ESCITALOPRAM OXALATE 10 MG TAB PO SCH (08:49)
[2016-03-26] MEDS ORDERED: THERTAB15 PO (17:00)
[2016-03-26] MEDS ORDERED: FURO1TAB60 PO (17:00)
[2016-03-26] MEDS ORDERED: LEVO25TA4 PO (17:00)
[2016-03-26] MEDS ORDERED: NOVOLOGSS SQ (17:00)
[2016-03-26] MEDS ORDERED: LEVA500T PO (17:00)
[2016-03-26] MEDS ORDERED: GLIP5 PO (17:00)
[2016-03-26] MEDS ORDERED: PANT40TA3 PO (17:00)
[2016-03-26] MEDS ORDERED: NEUR300C PO (17:00)
[2016-03-26] MEDS ORDERED: ASPI81TA11 PO (17:00)
[2016-03-26] MEDS ORDERED: PRAV10TA PO (17:00)
[2016-03-26] MEDS ORDERED: NUTR-215 J-TUBE (17:00)
[2016-03-26] MEDS ORDERED: ESCI10TA PO (17:00)
[2016-03-26] MEDS ORDERED: ISOS30TA3 PO (17:00)
[2016-03-26] MEDS ORDERED: PLAV75TA29 PO (17:00)
[2016-03-26] MEDS ORDERED: CARV3.125 PO (17:00)
[2016-03-26] MEDS ORDERED: IPRASOL NEB (17:00)
--- NOTE | 2016-03-26 17:10 | HHI.DS ---
Discharge Summary Admission Date Mar 13, 2016 at 21:33 Discharge Date: Mar 27, 2016 Admitting Diagnosis (1) H/O pyloroplasty Diagnosis: Principal (2) UTI (urinary tract infection) Diagnosis: Principal (3) Depression Diagnosis: Principal (4) Anemia, blood loss Diagnosis: Principal (5) Cardiomyopathy Diagnosis: Secondary (6) Diabetes (7) CAD (coronary artery disease) Diagnosis: Secondary (8) Hypertension Diagnosis: Secondary Consultants Dr. Carroll Velazco, Psychiatry Dr. Tani Krishnamurthy, Gastroenterology Dr. Archie Bridges, General Surgery Brief History Patient is a pleasant 60-year-old male with a complicated past medical history. Patient was hospitalized at [facility] this past December and underwent four- vessel CABG 12/20/[address] Ila Borrero. Patient also has a past medical history of duodenal ulcer, diverticulosis, chronic kidney disease, diabetes, peripheral vascular disease, CHF, hyperlipidemia, hypertension. Most recently patient was hospitalized at [facility] 01/25/16 for sepsis secondary to multilobar pneumonia and left lower extremity cellulitis. Patient developed GI bleed on 02/05/16 with acute anemia down to hemoglobin of 5.5 on 02/05/16. Due to rebleeding on patient was transferred from [facility] to [facility] for further control of his bleeding. After multiple attempts to control patient's bleeding at [facility] patient was ultimately transferred to [facility] for further management on 02/24/16. Patient underwent small bowel enteroscopy 02/24/16 and an active spurting vessel was seen in the second part of the duodenum which was treated with epinephrine and 2 clips. 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 Patient developed re-bleed on 03/01/16. Patient was taken to the OR by trauma team. Patient underwent exploratory laparotomy, Edel pyloroplasty with selective vagotomy, and J-tube placement. Patient was successfully extubated 03/02/16. Patient's postoperative recovery was complicated by urinary retention and Romero catheter was required. Patient transferred back to [facility] for further medical treatment. Apart from generalized weakness, patient with no current medical complaints. Specifically no nausea, vomiting, or diarrhea. No chest pain no palpitations no shortness of breath no diaphoresis. CBC/BMP: 03/25/16 0630 03/25/16 0630 Significant Findings Laboratory Tests Test 03/24/16 03/24/16 03/25/16 06:51 15:15 06:30 White Blood Count 13.9 TH/MM3 11.5 TH/MM3 (4.0-11.0) (4.0-11.0) Red Blood Count 3.25 MIL/MM3 3.30 MIL/MM3 (4.50-5.90) (4.50-5.90) Hemoglobin 9.0 GM/DL 9.0 GM/DL (13.0-17.0) (13.0-17.0) Hematocrit 27.7 % 27.7 % (39.0-51.0) (39.0-51.0) Neutrophils (%) (Auto) 88.4 % 85.4 % (16.0-70.0) (16.0-70.0) Lymphocytes (%) (Auto) 3.9 % 6.0 % (9.0-44.0) (9.0-44.0) Neutrophils # (Auto) 12.3 TH/MM3 9.8 TH/MM3 (1.8-7.7) (1.8-7.7) Lymphocytes # (Auto) 0.5 TH/MM3 0.7 TH/MM3 (1.0-4.8) (1.0-4.8) Sodium Level 133 MEQ/L 134 MEQ/L (136-145) (136-145) Chloride Level 94 MEQ/L 93 MEQ/L (98-107) (98-107) Carbon Dioxide Level 36.4 MEQ/L 34.0 MEQ/L (21.0-32.0) (21.0-32.0) Anion Gap 3 MEQ/L (5-15) Blood Urea Nitrogen 24 MG/DL (7-18) 25 MG/DL (7-18) Estimat Glomerular Filtration 88 ML/MIN (>89) Rate Random Glucose 120 MG/DL 165 MG/DL (74-106) (74-106) Calcium Level 8.1 MG/DL 8.0 MG/DL (8.5-10.1) (8.5-10.1) Urine Turbidity HAZY (CLEAR) Urine Protein 30 mg/dL (NEG-TRACE) Urine Ketones 10 mg/dL (NEG) Urine Occult Blood LARGE (NEG) Urine Nitrite POS (NEG) Urine Leukocyte Esterase LARGE (NEG) Urine WBC 82 /hpf (0-5) Urine WBC Clumps OCC (NONE) Urine Bacteria RARE /hpf (NONE) Urine Mucus FEW /lpf (OCC) Imaging Last Impressions Chest X-Ray 03/25/16 0800 Signed Impressions: Service Date/Time: March 09:18 - CONCLUSION: No significant change. The findings remain most characteristic of congestive heart failure. Shawn Motley MD PE at Discharge General: NAD, AAOx3 Chest: Upper airway congestion Cardiac: Regular Abd: +BS, soft, J-tube in place. midline incision with 2 areas of dehiscence currently packed Ext: No edema Hospital Course (1) UTI (urinary tract infection) Status: Acute Plan: - leukocytosis is improving - C. Dif negative, other stool studies negative - Urine Cx (03/24/16) --> gram negative jayden - start levaquin 03/25/16 - obtain UA/Cx --> pending - CXR (03/24/16) --> b/l effusions c/w CHF - PO Flagyl (started 03/23/16), continue for now - discharge to SNF 03/26/16 (2) H/O pyloroplasty Status: Acute Plan: - Pt with previous CABG in December then presented to [place] in February with cellulitis and PNA - Pt developed GIB and duodenal ulcer noted and was sent to [facility] for persistent bleeding of unclear etiology. - Pt received a total 28 units blood but continued to have bleeding and was then taken to [facility] on 02/24/16. Pt underwent small bowel enteroscopy on (02/24/16) and this revealed an active spurting vessel in the second portion of the duodenum and this was treated with epinephrine and 2 clips. 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 He then developed rebleeding on 03/01/16 and then went to OR for an exploratory laparotomy, [place] pyloroplasty with selective vagotomy, and J tube placement. - He was tx back to [facility] on 03/14/16 on tube feeding and with severe anemia. - Pt was given 2 units of blood (03/14/16) for hgb 6. Also his midline abdomen wound was dehiscing. - Pt with more pulmonary congestion. No aspiration on official evaluation, also has poor cough/inspiratory effort and CHF. - His Hgb trended down to 7.5 on 03/21/16 and was transfused with 2 units of PRBCs on 03/21/16 with improvement in Hgb to 9.3. No evidence of any active bleeding. - Cont. local wound care and no need for wound vac over abdomen wound. Gen Surgery following - Trying to wean off tube feeding, but not eating well. Encourage oral intake. TF @ 20mL/hr for now. . - Pts IV Lasix was d/c on 03/21 and converted back to po Lasix 40mg BID on - Cont. incentive spirometer/acapella. - Cont. nebs - discharge to SNF in AM 03/27/16 (3) Anemia, blood loss Status: Acute Plan: - See above (4) Cardiomyopathy Status: Chronic Plan: - worsening CXR - IV lasix - repeat CXR in AM (5) Diabetes Status: Chronic Plan: - SSI (6) CAD (coronary artery disease) Status: Chronic Plan: - CABG 12/2015 - ASA, Plavix, Coreg, Imdur, Pravachol (7) Hypertension Status: Chronic Plan: - Stable - Coreg Pt Condition on Discharge: Stable Discharge Disposition: Discharge to SNF Discharge Instructions DIET: Follow Instructions for: Heart Healthy Diet, Diabetic Diet Activities you can perform: Weight Bearing as Mannie Follow up Referrals: Gastroenterology - 3 Weeks with Tani Krishnamurthy MD PCP Follow-up - [address] Tray Jose f/u with PCP, Dr. Tray Jose, one week after discharge from SNF Psychiatry Adult - 3 Weeks with [facility] Mental [facility] Surgical - [address] Archie Bridges New Medications: Glipizide (Glucotrol) 5 Mg Tab 2.5 MG PO BIDAC Take 30 minutes before a meal Blood Sugar Management #[address] (Aspirin EC) 81 Mg Tabdr 81 MG PO DAILY cad #30 TAB Carvedilol (Coreg) 3.125 Mg Tab 3.125 MG PO Q12HR cad #60 Ref 0 TAB Clopidogrel (Plavix) 75 Mg Tab 75 MG PO DAILY cad #30 Ref 0 TAB Escitalopram (Escitalopram) 10 Mg Tab 10 MG PO DAILY depression #30 Ref 0 TAB Furosemide (Lasix) 40 Mg Tab 40 MG PO BID@09,18 chf #60 TAB Gabapentin (Neurontin) 300 Mg Cap 600 MG PO BID neuropathy #60 Ref 0 CAP Insulin Aspart Inj (Novolog Inj) 100 Unit/Ml Inj 1 UNITS SQ ACHS SLIDING SCALE dm Days 30 INJECTION Ipratropium-Albuterol Neb (Duoneb) 0.5-2.5 Mg/3 Ml Neb 1 AMPULE NEB Q2HR NEB PRN sob Days 30 ML Isosorbide Mononitrate ER (Isosorbide Mononitrate ER) 30 Mg Chan 30 MG PO DAILY@07 cad #30 TAB Levofloxacin (Levaquin) 500 Mg Tab 500 MG PO Q24H uti Days 4 Ref 0 TAB Levothyroxine (Levothyroxine) 25 Mcg Tab 25 MCG PO DAILY@0600 hypothyroid #30 Ref 0 TAB Multiple Vitamin (Thera/Beta-Carotene) 1 Tab Tab 1 TAB PO DAILY nutrition Days 30 Ref 0 TAB Pantoprazole (Pantoprazole) 40 Mg Tab 40 MG PO Q12HR gerd Days 30 TAB Pravastatin (Pravastatin) 10 Mg Tab 10 MG PO HS cad #30 Ref 0 TAB Changed Medications: Nutritional Supplements (Glucerna 1.5 Tiago) 1 Liq Liq 20 ML J-TUBE DAILY nutrition Days 30 ML (Changed from: 50 ML) Continued Medications: Nutritional Supplements (Glucerna Shake) 1 Liq Liq 1 CAN PO TID Oxycodone (Roxicodone) 5 Mg Tab 5 MG PO Q4H PRN PAIN Ref 0 TAB Pravastatin (Pravastatin) 20 Mg Tab 20 MG PO HS Cholesterol Management #30 Ref 0 TAB Prazosin (Prazosin) 1 Mg Cap 1 MG PO BID Blood Pressure Management #60 Ref 0 CAP Discontinued Medications: Diphenoxylate-Atropine Liq (Diphenoxylate-Atropine Liq) 2.5-0.025 Mg/5 Ml Soln 5 ML PO QID PRN DIARRHEA ML Heparin Inj (Heparin Inj) 10,000 Units/10 Ml Inj 5000 UNITS SQ Q8HR #1 VIAL Insulin Human Regular Inj (Novolin R Inj) 1,000 Unit/10 Ml Vial Unknown Dose SQ DIRECTED Sliding Scale As Directed. Blood Sugar Management # 10 Ref 0 ML Nystatin Topical (Nystatin Topical) 1 Powd 1 APPL TOPICAL DIRECTED CONTAINER Pantoprazole Liq (Protonix Liq) 40 Mg Pkt 40 MG PO BID Reflux #30 Ref 0 PKT Ren Brown DO Mar 26, 2016 17:10
[2016-03-26] MEDS: LEVOFLOXACIN 500 MG TAB PO SCH (17:18)
[2016-03-26] MEDS ORDERED: OXYC1TAB13 PO (17:44)
[2016-03-26] MEDS: PRAVASTATIN SOD 10 MG TAB PO SCH (21:27)
[2016-03-26] MEDS: PRAVASTATIN SOD 20 MG TAB PO SCH (21:27)
[2016-03-27] VITALS: BP 128/73; PULSE 63; RESP 20; TEMP 97.6; O2SAT 98
[2016-03-27] MEDS: metroNIDAZOLE 500 MG TAB PO SCH ×2 (00:34→09:48)
[2016-03-27] MEDS: LEVOTHYROXINE SODIUM 25 MCG TAB PO SCH (05:27)
[2016-03-27] MEDS: ISOSORBIDE MONONITRATE 30 MG TAB PO SCH (05:27)
[2016-03-27] MEDS: INSULIN ASPART SUPPLEMENTAL SCALE SQ SCH ×2 (05:28→11:35)
[2016-03-27 06:16] VITALS: BP 135/70; PULSE 67; RESP 18; TEMP 97.2; O2SAT 95
[2016-03-27 08:00] VITALS: BP 138/74; PULSE 68; RESP 18; TEMP 97.1; O2SAT 96
[2016-03-27] MEDS: NUTRITIONAL SUPPLEMENTS PO SCH (09:00)
[2016-03-27] MEDS: CARVEDILOL 3.125 MG TAB PO SCH (09:47)
[2016-03-27] MEDS: MULTIVITAMIN TAB PO SCH (09:48)
[2016-03-27] MEDS: PRAZOSIN HCL 1 MG CAP PO SCH (09:48)
[2016-03-27] MEDS: GABAPENTIN 300 MG CAP PO SCH (09:49)
[2016-03-27] MEDS: FUROSEMIDE 40 MG TAB PO SCH (09:50)
[2016-03-27] MEDS: ESCITALOPRAM OXALATE 10 MG TAB PO SCH (09:50)
[2016-03-27] MEDS: CLOPIDOGREL 75 MG TAB PO SCH (09:50)
[2016-03-27] MEDS: ASPIRIN EC 81 MG TABEC PO SCH (09:50)
[2016-03-27] MEDS: PANTOPRAZOLE SOD 40 MG DELAYED RELEASE TAB PO SCH (09:51)
[2016-03-27] MEDS: SODIUM CHLORIDE 0.9% FLUSH 5 ML FLUSH FLUSH SCH (09:52)
[2016-03-27 10:25] VITALS: PULSE 65
--- NOTE | 2016-04-02 10:35 | HHI.DCPOC ---
Discharge Care Plan Diagnosis: (1) Depression (2) Upper GI hemorrhage (3) UTI (urinary tract infection) (4) Anemia, blood loss (5) Cardiomyopathy (6) Hypertension (7) Diabetes (8) CAD (coronary artery disease) Goals to Promote Your Health * To prevent worsening of your condition and complications * To maintain your health at the optimal level Directions to Meet Your Goals Take your medications as prescribed Follow your dietary instruction Follow activity as directed Keep your appointments as scheduled Take your immunizations and boosters as scheduled If your symptoms worsen call your PCP, if no PCP go to Urgent Care Center or Emergency Room Smoking is Dangerous to Your Health. Avoid second hand smoke Call the 24-hour hour crisis hotline for domestic abuse at Ren Brown DO Apr 02, 2016 10:35
== END 2016-03-27 12:08 | DRG 811 ==
LOC: N05B 21:33
PROVIDERS: ADMIT Hospitalist; ATTEND Hospitalist
PROC: 30233N1 Transfusion of Nonautologous Red Blood Cells into Peripheral Vein, Percutaneous Approach (ICD-10-PCS; principal; 2016-03-14)
DX: D62 Acute posthemorrhagic anemia (principal); K26.4 Chronic or unspecified duodenal ulcer with hemorrhage; I42.9 Cardiomyopathy, unspecified; T81.31XA Disruption of external operation (surgical) wound, not elsewhere classified, initial encounter; I13.0 Hypertensive heart and chronic kidney disease with heart failure and stage 1 through stage 4 chronic kidney disease, or unspecified chronic kidney disease; I50.9 Heart failure, unspecified; F32.1 Major depressive disorder, single episode, moderate; N39.0 Urinary tract infection, site not specified; E11.22 Type 2 diabetes mellitus with diabetic chronic kidney disease; I25.10 Atherosclerotic heart disease of native coronary artery without angina pectoris; N18.3 Chronic kidney disease, stage 3 (moderate); E87.5 Hyperkalemia; I73.9 Peripheral vascular disease, unspecified; E78.5 Hyperlipidemia, unspecified; B96.89 Other specified bacterial agents as the cause of diseases classified elsewhere; R53.1 Weakness; R19.7 Diarrhea, unspecified; G62.9 Polyneuropathy, unspecified; Y83.8 Other surgical procedures as the cause of abnormal reaction of the patient, or of later complication, without mention of misadventure at the time of the procedure; Z95.0 Presence of cardiac pacemaker; Z95.1 Presence of aortocoronary bypass graft; Z79.4 Long term (current) use of insulin
CPT/HCPCS: 36430; 71010; 71020; 76937; 80048; 80076; 81001; 82272; 82948; 83735; 84155; 84439; 84443; 85007; 85025; 85027; 86850; 86900; 86901; 86920; 87077; 87086; 87186; 87205; 87207; 87328; 87329; 87493; 87506; 93005; 94640; 94664; 94667; J1815; J1940; J7608; P9016; P9047